=== PATIENT | male | born 1960 | race Caucasian/White ===

== ENCOUNTER → 2017-12-25 12:15 | Outpatient (CLI) | payer BC, SELFPAY ==
--- NOTE | 2017-12-25 12:22 | US_ITS ---
STUDY: SCROTUM ULTRASOUND REASON FOR EXAM: Male, 57 years old. Right-sided testicular pain. TECHNIQUE: Ultrasound evaluation of the scrotum was performed with color Doppler and static aragon-scale imaging. COMPARISON: None. FINDINGS: RIGHT TESTICLE INTRATESTICULAR: There is a normal size of the right testicle. The right testicle measures 5.1 x 3.3 x 2.5 cm. There is a homogenous echotexture. There is normal arterial and normal venous vascularity. There is no demonstrated right testicular mass or cyst. EXTRATESTICULAR: The epididymis is normal in size. The epididymis head measures 1.2 cm. There is normal vascularity of the epididymis. There is no demonstrated epididymal cystic structure. There is a small hydrocele. There is no demonstrated varicocele. There is no demonstrated extratesticular mass or cyst. LEFT TESTICLE INTRATESTICULAR: There is a normal size of the left testicle. The left testicle measures 4.6 x 2.9 x 2.3 cm. There is a homogenous echotexture. There is normal arterial and normal venous vascularity. There is no demonstrated left testicular mass or cyst. EXTRATESTICULAR: The epididymis is normal in size. The epididymis head measures 1.4 cm. There is normal vascularity of the epididymis. There is no demonstrated epididymal cystic structure. There is a small hydrocele. There is no demonstrated varicocele. There is no demonstrated extratesticular mass or cyst. US/Testicular with Arterial Flow IMPRESSION: There is no evidence of testicular torsion at the time this examination was performed. Small bilateral hydroceles. Electronically Signed: Win Head MD at 22:49 EDT Tel , Service support ,
== END ==
PROVIDERS: Family Provider Family Medicine; PCP Family Medicine; Visit Provider Family Medicine
DX: N50.819 Testicular pain, unspecified (principal)
CPT/HCPCS: 76870; 93976

== ENCOUNTER 2018-05-25 05:22 | Day surgery (SDC) | payer BC, SELFPAY ==
[2018-05-25] VITALS (9 sets, daily range): BP systolic 97–139; BP diastolic 82–94; PULSE 62–71; RESP 14–16; TEMP 36.1–36.8; O2SAT 69–100; BMI 29.9
--- NOTE | 2018-05-25 06:13 | PCM.HP.STD ---
Problem List (1) Screening for intestinal cancer Status: Acute History of Present Illness Date of Admission: 05/25/18 The patient is a 57 year old M who presents today for screening for intestinal cancer. He has never previously had a colonoscopy. He denies bright red blood per rectum or melena. I saw him January 30, 2018. He had an umbilical hernia at that time as well. He had initiated a weight loss program. He weighed as high as 280 pounds. When I saw him he weighed 272 pounds. He is still intentionally losing weight and would like to delay on the umbilical hernia repair. His mother had breast cancer and ovarian cancer. He does not know of any direct family members with colon cancer. He otherwise enjoys good health. Past Medical History Medical History: Medical History (Last Reviewed 01/30/18 @ 09:29 by Mel Lopez) Umbilical hernia without obstruction or gangrene (Acute) K42.9 Hemorrhoids K64.9 Stomach ulcer K25.9 Umbilical hernia K42.9 Allergies No Known Allergies Allergy (Unverified 01/30/18 09:32) Home Medications: Ambulatory Orders Medication Instructions Recorded Ibuprofen [Advil] 200 mg PO Q4H PRN PRN 05/18/18 Sildenafil Citrate [Sildenafil] 20 mg PO DAILY PRN 05/18/18 Surgical History: Surgical History (Last Updated 01/30/18 @ 09:29 by Mel Lopez) history kidney stone surgery Smoking Status: Never smoker Tobacco Use: Non-smoker Review of Systems Constitutional: Denies: Anorexia HEENT: Denies: Difficulty Swallowing Cardiovascular: Denies: Chest Pain, Chest Pressure Respiratory: Denies: Cough Gastrointestinal: Denies: Abdominal Pain, Hematochezia, Melena Neurological: Denies: Balance problems Psychiatric: Denies: Anxiety Endocrine: Reports: Change in Body Habitus - Intentional weight loss VTE Information - Inpt Only VTE Present on Admission: No Patient Problems: Active and Suspected Problems (Last Reviewed 01/30/18 @ 09:29 by Mel Lopez) Screening for intestinal cancer (Acute) - Physical Exam General: Alert, Oriented x3, Cooperative, No apparent distress HEENT: Atraumatic Oral: Moist Mucosa Neck: Supple, No JVD Lungs: Clear to auscultation Cardiovascular: Regular rate, Regular Rhythm Abdomen: Bowel Sounds Present, Soft, Non Tender Extremities: No clubbing Neurological: Cranial nerves II-XII grossly intact Psych/Mental Status: Normal Affect Vital Signs Temp Pulse Resp BP Pulse Ox 97.4 F L 71 16 112/84 H 96 05/25/18 05:57 05/25/18 05:57 05/25/18 05:57 05/25/18 05:57 05/25/18 05:57 Oxygen Delivery Method Room Air Weight: 252 lb 10.396 oz Body Mass Index (BMI) 29.9 Assessment/Plan All Active Problems (Last Reviewed 01/30/18 @ 09:29 by Mel Lopez) Screening for intestinal cancer (Acute) Umbilical hernia without obstruction or gangrene (Acute) I am recommending the patient a screening colonoscopy. He is aware of the technique, benefits, risks, alternatives. He has had an opportunity to ask and have questions answered. The patient does not yet want to proceed with umbilical herniorrhaphy. He is very much enjoying his [employer] program. He wants to continue to lose weight and to continue to stay fit. He does not want to have to interrupt his exercise protocol for the umbilical hernia repair at this time. He is still able to nicely reduce the hernia. He will notify me when he wants to proceed. Lazaro Arshad M.D., F.A.C.S.
--- NOTE | 2018-05-25 06:30 | COLBX_PTH ---
PATIENT: NIKKI DONALD LOC: EN U#:[id number] AGE/SX: 57/M ROOM: RE05/25/[address]: Dr. Lazaro Arshad MD : 1960 BED: DIS: 05/25/2018 SPEC #: [id number] RECD: 05/25/18 10:51 STATUS: JANELLE RAYMON #: [id number] SELVIN: 05/25/18 06:[address]: Lazaro Arshad DEPT: SURGICAL PATHOLOGY RECD BY: Otilio Babb ENTERED: 05/25/18 12:52 SP TYPE: COLON BX OTHR DR: Dr. Matthew Willis MD Tissues: Descending colon Procedures: Surgery Specimen Level IV HEADER OPERATION: Colonoscopy PRE-OP DIAGNOSIS: Screening TISSUE SUBMITTED: Descending polyp MICROSCOPIC DIAGNOSIS Descending colon polyp, biopsy: Fragments of tubular adenoma. AM:narinder 05/26/18 MICROSCOPIC DESCRIPTION Slides are reviewed. GROSS DESCRIPTION Received in fixative is one container labeled with the patient's name and designated descending polyp. The specimen consists of a duncan-pink polyp measuring 1 x 0.5 x 0.3 cm. Also present in the container are multiple fragments of fecal material measuring in aggregate 0.5 x 0.2 x 0.1 cm. The specimen is totally submitted in one cassette. / SJ:narinder 05/25/18 TC:5 CPT: 13296
--- NOTE | 2018-05-25 06:58 | OP.ENDO_ITS ---
Patient Name: Heriberto Enciso Procedure Date: 05/25/2018 6:06 AM Date of : 1960 Age: 57 Procedure: Colonoscopy Indications: Screening for colorectal malignant neoplasm Providers: Lazaro Arshad MD Referring MD: Lazaro Arshad MD Medicines: Midazolam 5 mg IV, Meperidine 150 mg IV Patient Profile: Last Colonoscopy: none. The patient's first colonoscopy is today. Complications: No immediate complications. Procedure: Pre-Anesthesia Assessment: - Prior to the procedure, a History and Physical was performed, and patient medications and allergies were reviewed. The patient's tolerance of previous anesthesia was also reviewed. The risks and benefits of the procedure and the sedation options and risks were discussed with the patient. All questions were answered, and informed consent was obtained. Prior Anticoagulants: The patient has taken no previous anticoagulant or antiplatelet agents. ASA Grade Assessment: II - A patient with mild systemic disease. After reviewing the risks and benefits, the patient was deemed in satisfactory condition to undergo the procedure. After I obtained informed consent, the scope was passed under direct vision. Throughout the procedure, the patient's blood pressure, pulse, and oxygen saturations were monitored continuously. The Colonoscope was introduced through the anus and advanced to the cecum, identified by appendiceal orifice and ileocecal valve. The colonoscopy was performed without difficulty. The patient tolerated the procedure well. The quality of the bowel preparation was good. The ileocecal valve was photographed. Moderate Sedation: Moderate (conscious) sedation was personally administered by the endoscopist. The following parameters were monitored: oxygen saturation, heart rate, blood pressure, and response to care. Total physician intraservice time was 15 minutes. Scope In: 6:32:28 AM Scope Withdrawal Time 0 hours 18 minutes 4 seconds Scope Out: 6:53:19 AM Total Procedure Duration Time 0 hours 20 minutes 51 seconds Findings: The perianal and digital rectal examinations were normal. Multiple diverticula were found in the sigmoid colon and descending colon. A 10 mm polyp was found in the descending colon. The polyp was pedunculated. The polyp was removed with a hot snare. Resection and retrieval were complete. Impression: - Diverticulosis in the sigmoid colon and in the descending colon. - One 10 mm polyp in the descending colon, removed with a hot snare. Resected and retrieved. Recommendation: - Telephone my office for pathology results in 1 week. - Resume previous diet. - Continue present medications. - Repeat colonoscopy in 3 years for surveillance based on pathology results. Procedure Code(s): --- Professional --- 83218, Colonoscopy, flexible; with removal of tumor(s), polyp(s), or other lesion(s) by snare technique 97169, 59, Moderate sedation services provided by the same physician or other qualified health resident care provider performing the diagnostic or therapeutic service that the sedation supports, requiring the presence of an independent trained observer to assist in the monitoring of the patient's level of consciousness and physiological status; initial 15 minutes of intraservice time, patient age 5 years or older Diagnosis Code(s): --- Professional --- Z12.11, Encounter for screening for malignant neoplasm of colon D12.4, Benign neoplasm of descending colon K57.30, Diverticulosis of large intestine without perforation or abscess without bleeding CPT copyright 2017 [employer]. All rights reserved. The codes documented in this report are preliminary and upon hims coder review may be revised to meet current compliance requirements. Lazaro Arshad MD 05/25/2018 6:58:15 AM This report has been signed electronically. Number of Addenda: 0 Note Initiated On: 05/25/2018 6:06 AM
== END 2018-05-25 08:11 | disposition home or self-care (01) ==
LOC: EN 05:22 → AC 05:25
PROVIDERS: Family Provider Family Medicine; PCP Family Medicine; Referring Provider Surgery; Visit Provider Surgery
PROC: 0DJD8ZZ Inspection of Lower Intestinal Tract, Via Natural or Artificial Opening Endoscopic (ICD-10-PCS; CPT 45378; principal; 2018-05-25 06:25)
DX: Z12.11 Encounter for screening for malignant neoplasm of colon (principal); D12.4 Benign neoplasm of descending colon; K42.9 Umbilical hernia without obstruction or gangrene; K57.30 Diverticulosis of large intestine without perforation or abscess without bleeding
CPT/HCPCS: 45380; 88305; 99152; 99153; J7120

== ENCOUNTER → 2020-02-03 | Outpatient (CLI) | payer BC, SELFPAY ==
[2018-05-25 05:57] VITALS: BMI 29.9
[2020-02-03 10:14] LABS: BUN 20 mg/dL (7-18); Creatinine, Serum 1.26 mg/dL (0.70-1.30); Glucose 132 mg/dL (74-106)
[2020-02-03 10:15] LABS: Anion Gap 7 (5-15); BUN/Creat Ratio 15.9 RATIO (10-20); Calcium,Total 8.6 mg/dL (8.5-10.1); Chloride 107 mmol/L (98-107); Cholesterol 216 mg/dL (200); EST Glomerular Filtration Rate 63 mL/min (>60); Est Glom Filt Rate - Afr Amer 76 mL/min (>60); High Density Lipoprotein 34 mg/dL; PSA,Total - Annual Screen 0.65 ng/mL (0.00-4.00); Potassium 3.8 mmol/L (3.5-5.1); Sodium Level 141 mmol/L (136-145); Triglycerides 146 mg/dL; Very Low Density Lipoprotein 29 mg/dL (5-40)
== END | disposition home or self-care (01) ==
LOC: MTLAB 07:53
PROVIDERS: PCP Family Medicine; Referring Provider Family Medicine; Visit Provider Family Medicine
DX: R73.01 Impaired fasting glucose (principal); Z13.220 Encounter for screening for lipoid disorders; Z12.5 Encounter for screening for malignant neoplasm of prostate
CPT/HCPCS: 36415; 80048; 80061; 84153; G0103

== ENCOUNTER 2020-09-06 08:59 | Day surgery (SDC) | payer BC, SELFPAY ==
[2020-08-09 15:07] VITALS: BMI 33.8
--- NOTE | 2020-09-01 08:36 | EKG12_ITS ---
Test Reason : PREOP Blood Pressure : / mmHG Vent. Rate : 069 BPM Atrial Rate : 069 BPM P-R Int : 184 ms QRS Dur : 098 ms QT Int : 396 ms P-R-T Axes : 069 041 055 degrees QTc Int : 424 ms Normal sinus rhythm Normal ECG Confirmed by GEORGIANA BUTLER, ABDELRAHMAN ([id number]), content editor KHOA FREY ([id number]) on 09/04/2020 10:22:42 AM Referred By: ENOCH GILES Confirmed By:ABDELRAHMAN STONER MD
[2020-09-01 08:41] LABS: Hematocrit 44.2 % (40-54); Mean Corp Hgb Conc 33.9 g/dL (32-36); Mean Corpuscular Hgb 30.1 pg (27.0-32.0); Mean Corpuscular Volume 88.8 fL (80-94); Mean Platelet Vol. 9.2 fl (6.2-12.0); Platelet Count 208 K/mm3 (150-450); RBC Distribution Width CV 11.9 % (11.6-14.6); RBC Distribution Width SD 38.5 fl (35.1-43.9); Red Blood Count 4.98 M/mm3 (4.6-6.2); White Blood Count 5.1 K/mm3 (4.4-11.0)
[2020-09-01 09:14] LABS: Anion Gap 6 (5-15); BUN 20 mg/dL (7-18); BUN/Creat Ratio 18.2 RATIO (10-20); Calcium,Total 8.8 mg/dL (8.5-10.1); Chloride 106 mmol/L (98-107); EST Glomerular Filtration Rate 73 mL/min (>60); Est Glom Filt Rate - Afr Amer 89 mL/min (>60); Glucose 125 mg/dL (74-106); Potassium 4.1 mmol/L (3.5-5.1); Sodium Level 141 mmol/L (136-145)
--- NOTE | 2020-09-06 | HERN_PTH ---
PATIENT: NIKKI DONALD LOC: [facility] U#:[id number] AGE/SX: 59/M ROOM: RE09/06/[address]: Dr. Lazaro Arshad MD : 1960 BED: DIS: 09/06/2020 SPEC #: [id number] RECD: 09/06/20 12:16 STATUS: JANELLE REQ #: [id number] SELVIN: 09/06/20 00:[address]: Lazaro Arshad DEPT: SURGICAL PATHOLOGY RECD BY: Esteban Parekh ENTERED: 09/06/20 12:17 SP TYPE: Hernia OTHR DR: Dr. Matthew Willis MD Tissues: HERNIA Procedures: Surgery Specimen Level II HEADER OPERATION: Umbilical hernia repair with mesh PRE-OP DIAGNOSIS: Umbilical hernia TISSUE SUBMITTED: Umbilical hernia sac MICROSCOPIC DIAGNOSIS Umbilical hernia sac: Fibroadipose and fibroconnective tissue, consistent with hernia sac. SJ:narinder 09/07/2020 MICROSCOPIC DESCRIPTION Slides are reviewed. GROSS DESCRIPTION Received in fixative is one container labeled with the patient's name and designated umbilical hernia sac. The specimen consists of an irregular piece of soft tissue measuring 4 x 2.5 x 1.5 cm. No mass lesion is identified. Pmo Consultant sections are submitted in one cassette. / SJ:rg 09/06/20 TC:5 CPT: 99723
[2020-09-06 09:47] VITALS: BP 130/88; PULSE 74; RESP 16; TEMP 37.1; O2SAT 95; BMI 33.5
[2020-09-06] MEDS: Lactated Ringers 1,000 ML 100 ML IV (10:06)
--- NOTE | 2020-09-06 10:30 | HP.PCM_ITS ---
Problem List (1) Umbilical hernia without obstruction or gangrene Status: Acute History and Physical Date of Admission: 09/06/20 Intake Visit Reasons: UMBILICAL HERNIA Chief Complaint: umbilical hernia Chief Controller Center Required: No Is patient in pain?: No Allergies No Known Allergies Allergy (Verified 08/09/20 15:08) Medications Ibuprofen [Advil] 200 mg PO Q4H PRN PRN 05/18/18 [History Confirmed 08/09/20] PFSH Medical History Umbilical hernia without obstruction or gangrene (Acute) Hemorrhoids (Acute) Stomach ulcer (Acute) Umbilical hernia (Acute) Surgical History history kidney stone surgery (Acute) Family History Mother Breast cancer Colon cancer Brother Heart disease Social History (Updated 08/09/20 @ 15:[address] Lazaro Arshad MD) Smoking Status: Never smoker alcohol intake: current alcohol intake frequency: a few times a month substance use type: does not use HPI HPI HPI: NIKKI DONALD, is a 59 M who presents to the office today for Surgical consultation regarding an umbilical hernia. The patient is referred by his primary care physician Dr. Matthew Willis and a written copy of my surgical consult and recommendations will return to him. I have assisted the patient on May 25, 2018 with a colonoscopy. Diverticulosis and a descending colon tubular adenoma were treated. He did have his umbilical hernia at that time. He was hoping with a self Improvement project to be able to lose weight prior to repair. The patient presents today basically because a week ago he had very significant soreness of the umbilicus he tried to manually reduce the area it was tender it was tender for 2 to 3 days. At this moment is currently improved. He does have a known hernia. After our previous visit he did intentionally lose some weight but unfortunately has regained much of it. He has back on a diet and exercise regimen. His current weight is about 273 pounds.He has concerns however because of the acute episode of discomfort HPI HPI HPI: NIKKI DONALD, is a 59 M who presents to the office today for ROS General General: Yes weight change; no appetite, fatigue, colon cancer, breast cancer or weakness HEENT HEENT: No difficulty swallowing, eye injury, eye surgery, swollen glands or hoarseness Endo Endocrine: No thyroid disease, diabetes mellitus, thyroid cancer, Hair loss, heat intolerance or cold intolerance Skin Skin: No rash or changing moles Breast Breast: No left breast lump, right breast lump, nipple discharge, breast pain, abnormal mammogram, abnormal US or breast enlargement Musc Musculoskeletal: No back problems, arthritis, rheumatoid arthritis, gout or joint pain Cardio Cardiovascular: No murmur, pacemaker, heart disease, atrial fibrillation, high blood pressure, heart attack, heart stent, palpitations, shortness of breat with exertion or chest pain Psych Psychiatric: No depression, anxiety or hearing voices Resp Respiratory: No shortness of breath, No sleep apnea, No cough, No COPD, No asthma, No emphysema, No wheezing Gastro Gastrointestinal: No abdominal pain, No nausea or vomiting, No diarrhea, No constipation, No blood in stool, No acid reflux, Yes hemorrhoids, Yes ulcers, No gallbladder problem, No black,tarry stools Spenser Hematologic: No blood thinners, No blood disorders, No bleeding, No anemia, No blood clots Neuro Neurologic: No system reviewed and no additional complaints, except as docu, No as per HPI, No abnormal walking, No abnormal hearing, No abnormal movements, No abnormal speech, No behavioral changes, No burning sensations, No confusion, No seizure-like activity, No unsteadiness, No dizziness, No localized weakness, No frequent falls, No headache(s), No lack of coordination, No loss of vision, No memory loss, No numbness, No other visual disturbances, No radiating pain, No restless legs, No sensory deficit, No fainting, No tingling, No tremor(s), No weakness, No other Exam Const General: cooperative, healthy appearing, comfortable Nutritional Appearance: obese Orientation: alert, awake [facility] Head: normal to inspection Eyes General: appearance normal, both eyes and all related structures Chest Breast Palpation: No nipple discharge Resp Effort & Inspection: normal respiratory effort Auscultation: clear to auscultation bilaterally Cardio Rate: regular rate Rhythm: regular rhythm Heart Sounds: no murmurs GI Palpation: soft Other: Overweight, bulbous umbilical hernia, mostly reducible, fascial defect approximately 2 cm diameter, normal bowel sounds Musc Cervical Spine: normal cervical lordosis Skin General: no rashes or lesions noted Neuro General: alert Extrem General: no calf tenderness Psych Affect: normal affect Assessment & Plan Problems 1. Umbilical hernia without obstruction and without gangrene K42.9 Plan 59-year-old gentleman with known history of umbilical hernia with what sounds like an episode of brief incarceration a week ago. I have discussed with him recommendations for a open umbilical herniorrhaphy utilizing a Ventralex mesh. I would anticipate retrorectus positioning. I have described the technique, benefit, risk, alternatives. He had hoped to return to work within 2 to 3 days. I suggested to him that there is a significant risk of recurrence of at least 3 to 5%. His body weight of 273 pounds does increase the risk. We discussed techniques to try to moderate that. Because of his episode of discomfort I do believe that at this point it is reasonable to proceed with a repair. Certainly it would be more difficult to proceed in an emergency situation. He has had an opportunity to ask and have questions answered. He will schedule procedure at his discretion. I anticipate an open approach at the umbilicus with has noted placement of mesh in the retrorectus space with direct repair as an outpatient. I appreciate the ongoing opportunity of assisting with his surgical care Copy: Dr. Matthew Arshad M.D., F.A.C.S. Coding Level of Care Code Off vis,est,level 3 Diagnoses Umbilical hernia without obstruction and without gangrene K42.9 I have re-examined the patient. There are no clinical changes since date of exam. Procedure Criteria Procedure Type: Elective COVID Risk Discussion: The surgeon/proceduralist and patient have discussed in detail the risk of exposure to and/or potential harm posed by the COVID-19 virus with having a surgery/procedure at this time versus the risk of delaying the surgery/procedure. It is not possible to know either the risk of delaying the surgery or procedure or chance of getting an infection with perfect accuracy, but a joint decision was made between the patient and the surgeon/proceduralist to proceed at this time with the scheduled surgery/procedure as indicated on the consent form.
--- NOTE | 2020-09-06 10:32 | DCINST_ITS ---
Discharge Diet: Light diet - advance as tolerated - if you have questions about your diet instructions, please talk to you doctor. Discharge Activity: May Not Drive - for 1 week or while taking narcotic pain medicine. May shower in (days): 1 Lifting Restrictions: 10 pounds Call your doctor if your incision/area has: Continuous Slow Oozing, Sudden Increased Bleeding, Increased Pain/ Swelling, Increased Redness, Foul Smelling Discharge Call your doctor if you observe: Fever of 101 or Higher Suture Line Care: Avoid Pulling/Pushing, Avoid Pinching/Bending Additional Dressing/Incision Instructions:: Change or remove dressing in 4 days. Leave steri-strips in place for 1 week. Allergies/Adverse Reactions: Allergies No Known Allergies Allergy (Verified 08/30/20 08:57) Medications to take at Discharge Ibuprofen [Advil] 200 mg PO Q4H PRN PRN 05/18/18 Sildenafil Citrate [Sildenafil] 20 mg PO PRN PRN 08/30/20 Primary Care Physician: Arnie Willis MD [Primary Care Provider] - Test Results: Test results from this visit will be discussed in further detail at your follow- up appointment, if applicable. Please Follow Up With: Lazaro Arshad MD - [phone] When: Call to make an appointment to be seen in about 10 days.
[2020-09-06] MEDS: Bupivacaine Mpf 0.5% 30 ML VIAL (11:14)
--- NOTE | 2020-09-06 11:23 | PCM.OPRPT ---
Problem List (1) Umbilical hernia without obstruction or gangrene Status: Acute Report of Operation Date of Procedure: 09/06/20 Pre-Operative Diagnosis: Umbilical hernia Post-Operative Diagnosis: Symptomatic umbilical hernia Surgery/Procedure Performed:: Umbilical herniorrhaphy with Ventralex ST hernia patch. Reference [id number]. Lot [id number]. Expiry date 02/10/2022 Description of Surgical Findings:: Timeout informed consent was obtained. 59-year-old gentleman was taken to the operating place upon the table underwent general anesthesia. Ancef 2 g were given intravenously preoperatively. The abdomen sterilely prepped and draped. A curvilinear infraumbilical incision was created. Sharp and blunt dissection was used to dissect free the hernia sac. Then flush with the fascia was transected using electrocautery. Hemostasis was intact. No bowel involvement. The preperitoneal space was then developed sharply and bluntly. The peritoneum was approximated with a running 3-0 Vicryl. A [address] mesh was placed into the retrorectus space. Good positioning was achieved. The tails were secured with interrupted 0 Nurolon. The fascia was approximated transversely with the same. Excellent approximation and positioning was achieved. The skin was secured to the fascia with simple suture of 4-0 Monocryl. Skin edges approximated with interrupted 4 Monocryl subdermal stitches. The periincisional and fascia was anesthetized with 30 cc of 0.5% Marcaine. Dermabond Telfa OpSite bulky dry dressing applied. Sponge and instrument and needle counts were reported the surgeon to be correct. Specimen hernia sac/contents. Drains none. Blood loss minimal. The patient was taken to the recovery room in satisfactory edition without apparent complication Lazaro Arshad M.D., F.A.C.S. Type of Anesthesia:: General Anesthesiologist: Sd Burrell
[2020-09-06 11:34] VITALS: BP 130/88; BP 153/96; PULSE 74; RESP 18; TEMP 36.1; O2SAT 94
[2020-09-06 11:45] VITALS: BP 130/88; BP 141/93; PULSE 69; RESP 18; O2SAT 94
[2020-09-06 11:56] VITALS: BP 130/88; BP 150/83; PULSE 69; RESP 18; TEMP 35.9; O2SAT 96
[2020-09-06 13:25] VITALS: BP 130/88; BP 151/95; PULSE 69; RESP 18; TEMP 36.2; O2SAT 95
== END 2020-09-06 13:39 | disposition home or self-care (01) ==
LOC: SDC 09:00 → AC 09:01
PROVIDERS: PCP Family Medicine; Referring Provider Surgery; Visit Provider Surgery
PROC: (CPT 49585; principal; 2020-09-06 10:45)
DX: K42.9 Umbilical hernia without obstruction or gangrene (principal); E66.9 Obesity, unspecified; F17.200 Nicotine dependence, unspecified, uncomplicated; Z20.822 Contact with and (suspected) exposure to COVID-19
CPT/HCPCS: 00830; 49585; 36415; 80048; 85027; 87426; 88302; 93005; C9803; J7120; C1781; J2405

== ENCOUNTER → 2020-10-27 | Outpatient (CLI) | payer BC, SELFPAY | END | disposition home or self-care (01) | LOC: LABSPEC 11:35 | PROVIDERS: PCP Family Medicine; Referring Provider Family Medicine; Visit Provider Family Medicine | DX: Z03.818 Encounter for observation for suspected exposure to other biological agents ruled out (principal) | CPT/HCPCS: 87635; U0002 ==

== ENCOUNTER → 2020-12-06 16:51 | Outpatient (CLI) | payer BC, SELFPAY ==
--- NOTE | 2020-12-06 16:55 | RAD_ITS ---
STUDY: X-RAY CHEST REASON FOR EXAM: Male, 60 years old. CHEST PAIN TECHNIQUE: PA and lateral views of the chest. COMPARISON: None. FINDINGS: The lungs are clear and expanded. There is no demonstrated pleural abnormality. Normal size heart. Normal mediastinum and taryn. Normal visualized pulmonary arteries. Normal visualized aortic arch and descending thoracic aorta. Normal visualized thoracic spine. Normal visualized ribs, clavicles, and shoulders. There is no demonstrated abnormality of the visualized soft tissue structures of the upper abdomen. RAD/Chest PA and Lateral IMPRESSION: Normal x-ray examination of the chest. Electronically Signed: Otilio Rose MD at 18:06 EDT Tel , Service support ,
[2020-12-06 18:32] LABS: ALB/GLOB Ratio 1.3 RATIO (0.9-2.4); AST(SGOT) 27 U/L (15-37); Alanine Aminotransfer ALT/SGPT 64 U/L (16-61); Albumin, Serum 3.9 g/dL (3.2-5.0); Alkaline Phosphatase 38 U/L (45-117); Anion Gap 7 (5-15); BUN 17 mg/dL (7-18); BUN/Creat Ratio 15.3 RATIO (10-20); Calcium,Total 8.6 mg/dL (8.5-10.1); Chloride 106 mmol/L (98-107); Cholesterol 209 mg/dL (200); Creatinine, Serum 1.11 mg/dL (0.70-1.30); EST Glomerular Filtration Rate 72 mL/min (>60); Est Glom Filt Rate - Afr Amer 88 mL/min (>60); Globulin 3.1 g/dL (2.2-4.2); Glucose 107 mg/dL (74-106); High Density Lipoprotein 28 mg/dL; PSA,Total - Annual Screen 0.65 ng/mL (0.00-4.00); Potassium 3.6 mmol/L (3.5-5.1); Sodium Level 141 mmol/L (136-145); Triglycerides 396 mg/dL; Very Low Density Lipoprotein 79 mg/dL (5-40)
== END ==
PROVIDERS: PCP Family Medicine; Referring Provider Family Medicine; Visit Provider Family Medicine
DX: R07.9 Chest pain, unspecified (principal); R73.01 Impaired fasting glucose; Z12.5 Encounter for screening for malignant neoplasm of prostate
CPT/HCPCS: 36415; 71046; 80053; 80061; 84153; G0103

== ENCOUNTER 2020-12-07 06:42 | Observation (INO) | payer BC, SELFPAY ==
[2020-12-07] VITALS (28 sets, daily range): BP systolic 121–195; BP diastolic 72–116; PULSE 56–78; RESP 15–18; TEMP 36.7–36.9; O2SAT 94–100; BMI 33.5; BMI 32.9
--- NOTE | 2020-12-07 06:46 | RAD_ITS ---
STUDY: X-RAY CHEST REASON FOR EXAM: Male, 60 years old. chest pain TECHNIQUE: Single AP portable view of the chest. COMPARISON: None. FINDINGS: The lungs are clear and expanded. There is no demonstrated pleural abnormality. Normal size heart. Normal mediastinum and taryn. Normal visualized pulmonary arteries. Normal visualized aortic arch and descending thoracic aorta. Normal visualized thoracic spine. Normal visualized ribs, clavicles, and shoulders. There is no demonstrated abnormality of the visualized soft tissue structures of the upper abdomen. RAD/Chest 1 View (Portable) IMPRESSION: Normal x-ray examination of the chest. Electronically Signed: Tomas Yen MD at 7:50 EDT Tel , Service support ,
--- NOTE | 2020-12-07 06:46 | EKG12_ITS ---
Test Reason : CP Blood Pressure : / mmHG Vent. Rate : 073 BPM Atrial Rate : 073 BPM P-R Int : 188 ms QRS Dur : 110 ms QT Int : 404 ms P-R-T Axes : 058 021 063 degrees QTc Int : 445 ms Normal sinus rhythm Incomplete right bundle branch block Nonspecific T wave abnormality Abnormal ECG Confirmed by GEORGIANA BUTLER, ABDELRAHMAN ([id number]), international editorial producer KHOA FREY ([id number]) on 12/08/2020 12:58:19 PM Referred By: JUAREZ Confirmed By:ABDELRAHMAN STONER MD
--- NOTE | 2020-12-07 06:47 | ED.VIS.CHEST ---
HPI History of Present Illness Chief Complaint: Chest Pain Informant: patient Onset/Context/Timing Onset: Days Activity at onset: gradual Timing: Continuous Quality: Positive for Heaviness and Tightness Location: Substernal, Right Chest and Left Chest Current Severity: Moderate Maximum Severity: Moderate Worsened By: Exertion Relieved By: Rest Associated Symptoms: Positive for Diaphoresis and Dyspnea Narrative Narrative: Patient is a 60-year-old male on no daily medications who presents to the emergency department chest pain. Patient states for the past 10 days to 2 weeks, he has been having tightness in his left arm into his chest. He states over the past few days, anytime he exerts himself, he begins to have the tightness. He states that he also feels short of breath. He did see his primary care physician in the office 2 days ago. He was told that if the symptoms continue or worsen that he should come to the emergency department. He states that his pain just would not go away this morning. He has no history of cardiovascular disease. Recent Illness/Hospitalization: No CVD Risk Factors: Positive for Family History 1' </=55 PFSH PFSH Medical History Hemorrhoids Stomach ulcer Umbilical hernia without obstruction or gangrene Home Medications ibuprofen 200 mg PO Q4H PRN PRN 05/18/18 [History Last Taken Unknown] sildenafil (pulm.hypertension) 20 mg PO PRN PRN 08/30/20 [History Last Taken Unknown] Allergy/AdvReac Type Severity Reaction Status Date / Time No Known Allergies Allergy Verified 09/18/20 13:40 Family History Mother Breast cancer Colon cancer Brother Heart disease Surgical History history kidney stone surgery History of umbilical hernia repair (~08/2020) Social History Smoking Status: Light Smoker (<10/day) alcohol intake: current alcohol intake frequency: a few times a month substance use type: does not use ROS ROS ED Constitutional Constitutional ED: Denies chills or fever(s) Eyes Eyes: Denies blurry vision or change in vision ENT ENT ED: Denies ear pain or sore throat Cardiovascular Cardiovascular: Denies chest pain or palpitations Respiratory/Chest Respiratory/Chest: Denies cough, dyspnea or dyspnea on exertion Gastrointestinal Gastrointestinal: Denies abdominal pain, nausea or vomiting Genitourinary Genitourinary ED: Denies dysuria or urinary frequency Musculoskeletal Musculoskeletal: Denies arthralgias or myalgias Integumentary Denies rash Neurologic Neurologic: Denies headache(s) or paresthesias Psychiatric Psychiatric: Denies anxiety or depression Endocrine Endocrinology: Denies polydipsia or polyuria Allergic/Immunologic Allergic/Immunologic ED: Denies urticaria EXAM Physical Exam Const Vital Signs: 12/07/20 06:43 12/07/20 06:48 12/07/20 06:55 Temperature 98.4 F Temperature Source Oral Pulse Rate 77 66 Respiratory Rate 16 Respiratory Effort Short of Breath Blood Pressure 189/116 H 195/115 H Blood Pressure Mean 140 Pulse Ox 95 Oxygen Delivery Method Room Air Room Air 12/07/20 07:18 Temperature Temperature Source Pulse Rate 61 Respiratory Rate Respiratory Effort Blood Pressure 142/86 H Blood Pressure Mean Pulse Ox Oxygen Delivery Method Positive well nourished and well developed General Appearance ED: well developed HEENT Reports normocephalic, head/scalp atraumatic and moist mucous membranes Eyes PERRL and EOMs intact bilaterally Neck no lymphadenopathy and supple General: Negative for tenderness Chest Wall inspection of chest normal Resp normal respiratory effort and clear to auscultation bilaterally Cardio regular rate, regular rhythm and no murmurs GI normal to inspection, nondistended, normoactive bowel sounds Palpation: Negative for tender, guarding or rebound tenderness present Back/Spine no CVA tenderness Cervical Spine: Negative for cervical spine tenderness Thoracic Spine / Upper Back: Negative for thoracic spinal tenderness Extremity normal to inspection General Extremety ED: Negative for tenderness Neuro oriented x3 and CN's II-XII intact bilaterally Neuro Narrative: No focal deficits appreciated. Sensorium / Orientation: alert Psych mental status grossly normal Skin no rashes or lesions noted, no wounds and skin turgor normal Heart Score History: Highly Suspicious ECG: Nonspecific Repolarization Age: >45 - <65 years Risk Factors: 1 or 2 Risk Factors Troponin: </= Normal Limit Score: 5 MDM MDM MDM Narrative Medical decision making narrative: The patient is a 60-year-old male who presents to the emergency department with chest pain. On arrival, the patient is hypertensive. EKG was obtained. In comparison to an EKG from 3 months ago, he has new T wave inversions across precordium. Patient was given 1 nitro. This did significantly improve his pain. Chest x-ray was reviewed by both myself and the radiologist. There is no enlarged cardiac silhouette, pneumothorax, pneumonia, or effusion. With the patient's new EKG changes, exertional chest pain, now chest pain at rest, I do feel that he would benefit from admission. The patient was discussed with the hospitalist. Patient was also discussed with Dr. Waite for cardiology. Impression 1. Unstable angina 2. EKG changes Lab Data Attestation: I reviewed the patient's lab results. Labs: Laboratory Results - last 24 hr 12/07/20 12/07/20 12/07/20 06:45 06:45 06:45 WBC 5.8 RBC 4.95 Hgb 14.9 Hct 43.5 MCV 87.9 MCH 30.1 MCHC 34.3 RDW Std Deviation 39.0 RDW Coeff of Jose 12.2 Plt Count 215 MPV 8.9 Immature Gran % (Auto) 1.400 H Neut % (Auto) 58.1 Lymph % (Auto) 28.3 [place] % (Auto) 8.7 Eos % (Auto) 2.8 Baso % (Auto) 0.7 Absolute Neuts (auto) 3.4 Absolute Lymphs (auto) 1.63 Nucleated RBC % 0 Sodium 140 Potassium 4.4 Chloride 106 Carbon Dioxide 30.0 Anion Gap 4 L BUN 18 Creatinine 1.24 Estim Creat Clear Calc 81.83 Est GFR (MDRD) Af Amer 77 Est GFR (MDRD) Non-Af 64 BUN/Creatinine Ratio 14.5 Glucose 143 H Calcium 8.9 Troponin I High Sens 9.7 B-Natriuretic Peptide 3.2 EKG Initial EKG: Attestation: I personally reviewed and interpreted this EKG as follows: Interpretation: Sinus Rhythm and Non-Specific ST Changes Comments: New large T wave inversions in the precordial leads Prior EKG tracings: available for review Prior: Changed Discharge Plan Triage Chief Complaint: Chest Pain ED Provider: Fredi Ornelas Dx/Rx/DC Orders Prescriptions: No Action ibuprofen 200 MG tablet 200 mg PO Q4H PRN PRN (Reason: Pain 1-10 Or Fever) RF: 0 sildenafil (pulm.hypertension) 20 MG tablet 20 mg PO PRN PRN (Reason: enhancement) RF: 0 Primary Care Provider: Arnie Willis
[2020-12-07 06:53] LABS: Absolute Lymphocyte Count 1.63 X10^3/uL (0.83-4.51); Absolute Neutrophil Count 3.4 X10^3/uL (2.0-7.7); Basophil# 0.04 X10^3/uL; Basophil% 0.7 % (0-1); Eosinophil# 0.16 X10^3/uL; Eosinophils% 2.8 % (0-5); Hematocrit 43.5 % (40-54); Hemoglobin 14.9 g/dL (13.0-16.5); Lymphocyte # 1.63 X10^3/ul (0.83-4.51); Lymphocyte % 28.3 % (19-41); Mean Corp Hgb Conc 34.3 g/dL (32-36); Mean Corpuscular Hgb 30.1 pg (27.0-32.0); Mean Corpuscular Volume 87.9 fL (80-94); Mean Platelet Vol. 8.9 fl (6.2-12.0); Monocyte% 8.7 % (0-10); NRBC Flagged by Analyzer 0 % (0-5); Neutrophil # 3.35 X10^3/uL (2.7-7.7); Neutrophil % 58.1 % (47-70); Platelet Count 215 K/mm3 (150-450); RBC Distribution Width CV 12.2 % (11.6-14.6); Red Blood Count 4.95 M/mm3 (4.6-6.2); White Blood Count 5.8 K/mm3 (4.4-11.0)
[2020-12-07] MEDS: Aspirin 81 MG TAB.CHEW 324 MG PO (06:53)
[2020-12-07] MEDS: Nitroglycerin SL (ED/IMG/CATH) 0.4 MG TABLET SL ×2 (06:55→07:18)
[2020-12-07 07:11] LABS: Anion Gap 4 (5-15); BUN 18 mg/dL (7-18); BUN/Creat Ratio 14.5 RATIO (10-20); Calcium,Total 8.9 mg/dL (8.5-10.1); Chloride 106 mmol/L (98-107); Creatinine, Serum 1.24 mg/dL (0.70-1.30); EST Glomerular Filtration Rate 64 mL/min (>60); Est Glom Filt Rate - Afr Amer 77 mL/min (>60); Estimated Creatinine Clearance 81.83 ml/min; Glucose 143 mg/dL (74-106); Potassium 4.4 mmol/L (3.5-5.1); Sodium Level 140 mmol/L (136-145); Troponin-I HS 9.7 pg/mL (3.0-78.5)
[2020-12-07 07:28] LABS: BNP,B-Type NATRIURETIC PEPTIDE 3.2 pg/mL (0-100)
--- NOTE | 2020-12-07 07:44 | HP.PCM.HOS_ITS ---
HPI - General General Date of Admission: 12/07/20 HPI Narrative NIKKI DONALD, is a 60 M who presented to [facility] on 12/07[facility]2020 complaining of chest pain. Patient reports that he has been experiencing intermittent chest pain since approximately weekend. He recently started a walking program and had to discontinue this secondary to shortness of breath he was experiencing during his walks which was new. Recently he has been having daily chest pain that has been more noticeable with exertion, even minimal exertion, and seems to subside with rest. His most recent episode was this morning when he got up to go to the bathroom upon walking to the bathroom he got left-sided chest pain that radiated to his left shoulder he had some associated diaphoresis and shortness of breath. He denies any radiation of pain to his neck or jaw, nausea, or vomiting. He reports that his brothers both had coronary events in their 50s. He has no other significant risk factors that he does admit to cigar smoking occasionally. His vital signs in the emergency department were stable. He had ongoing chest pain which was treated with sublingual nitro x2 and had resolution of pain. His CBC is unremarkable. His BMP is unremarkable. His fasting glucose is mildly elevated at 143. His BNP was 3.2. His high-sensitivity troponin was 9.7 upon presentation. Chest x-ray was unremarkable. His EKG shows new deep T wave inversions in V1 V2 and V3. He will be admitted to PCU as an observation and upon request of the on-call barrel brander will have a stress test if his repeat troponin at 2 hours is negative and if it is positive he will go to the [facility]. [facility] Medical History Hemorrhoids Stomach ulcer Umbilical hernia without obstruction or gangrene Home Medications ibuprofen 200 mg PO Q4H PRN PRN 05/18/18 [History Last Taken Unknown] sildenafil (pulm.hypertension) 20 mg PO PRN PRN 08/30/20 [History Last Taken Unknown] Allergy/AdvReac Type Severity Reaction Status Date / Time No Known Allergies Allergy Verified 09/18/20 13:40 Family History Mother Breast cancer Colon cancer Brother Heart disease Surgical History history kidney stone surgery History of umbilical hernia repair (~08/2020) Social History Smoking Status: Light Smoker (<10/day) alcohol intake: current alcohol intake frequency: a few times a month substance use type: does not use ROS Review of Systems ROS Unobtainable: Denies due to encephalopathy, due to endotracheal tube, due to mental condition, due to mental status or other Constitutional Constitutional: Denies anorexia, change in weight, chills, fatigue, fever(s), malaise, night sweats or weakness ENT HEENT: Denies abnormal hearing, dysphagia, ear pain, epistaxis, headache(s), hearing loss, nasal congestion, nasal discharge, post nasal drip, sinus pressure, sore throat or other Cardiovascular Cardiovascular: Reports chest pain and dyspnea on exertion; Denies claudication, edema, lightheadedness, orthopnea, palpitations, paroxysmal nocturnal dyspnea, rapid heart rate or syncope Respiratory/Chest Respiratory/Chest: Reports dyspnea and shortness of breath with exertion; Denies cough, excessive phlegm production, hemoptysis, productive cough, shortness of breath at rest, wheezing or other Gastrointestinal Gastrointestinal: Denies abdominal pain, coffee ground emesis, constipation, diarrhea, dyspepsia, hematemesis, hematochezia, loose stools, melena, nausea or vomiting Genitourinary Genitourinary: Denies burning urination, difficulty urinating, dysuria, hematuria, nocturia, urinary frequency, urinary hesitancy, urinary incontinence, urinary urgency or other Musculoskeletal Musculoskeletal: Denies arthralgias, back pain, joint pain, joint stiffness, joint swelling, myalgias, neck pain or other Neurologic Neurologic: Denies abnormal gait, abnormal speech, confusion, disequilibrium, dizziness, focal weakness, headache(s), numbness, paresthesias, seizure-like activity, seizures, syncope, tingling, tremor(s) or other Psychiatric Psychiatric: Denies anxiety, depression, homicidal ideation, suicidal ideation or other Endocrine Endocrinology: Denies change in body appearance, cold intolerance, excessive sweating, heat intolerance, polydipsia, polyuria or other Hematologic/Lymphatic Hematologic/Lymphatic: Denies anemia, easy bleeding, easy bruising, lymphadenopathy or other Allergic/Immunologic Allergic/Immunologic: Denies rhinitis, hives, eczemia, asthma or other Vital Signs Vital Signs Vital Signs: 12/07/20 06:43 12/07/20 06:48 12/07/20 06:55 Temperature 98.4 F Temperature Source Oral Pulse Rate 77 66 Respiratory Rate 16 Respiratory Effort Short of Breath Blood Pressure 189/116 H 195/115 H Blood Pressure Mean 140 Pulse Ox 95 Oxygen Delivery Method Room Air Room Air 12/07/20 07:18 12/07/20 07:33 Temperature 98.4 F Temperature Source Oral Pulse Rate 61 63 Respiratory Rate 15 Respiratory Effort Blood Pressure 142/86 H 139/84 H Blood Pressure Mean 102 Pulse Ox 96 Oxygen Delivery Method Room Air Weight Weight: 128.2 kg Body Mass Index (BMI) 33.5 Physical Exam Const alert, oriented x3, no apparent distress, healthy appearing and well nourished Constitutional Narrative: Overweight, Well developed, white male, sitting up in bed, at bedside, pt feels comfortable General Appearance: cooperative HEENT normocephalic, head/scalp atraumatic, hearing grossly normal bilaterally, moist oral mucous membranes and oropharynx normal Mouth: oral and palatal mucosa normal and moist mucous membranes abnormal Eyes PERRL, EOMs intact bilaterally and conjunctivae normal Neck no lymphadenopathy, supple, no JVD and no carotid bruits Neck Narrative: trachea midline, thyroid not enlarged and without nodules Resp normal respiratory effort, no retractions, no use of accessory muscles and clear to auscultation bilaterally Auscultation: Negative for crackles, rales, rhonchi or wheezes Cardio regular rate, regular rhythm, S1 normal heart sound, S2 normal heart sound, no murmurs, no rub, no gallops, no clicks and no JVD GI normal to inspection, nondistended, normoactive bowel sounds, soft to palpation, non-tender and non-distended; Negative for hepatosplenomegaly Palpation: Negative for tender, guarding or hernia Extremity normal to inspection, full ROM and no clubbing, cyanosis or edema Peripheral Pulses: Yes pulses 2+ throughout Skin no rashes or lesions noted, no wounds, skin turgor normal, no jaundice, no petechiae and no mottling Neuro oriented x3, CN's II-XII intact bilaterally, moves all extremities and no focal motor deficits Sensorium / Orientation: awake, alert, oriented to person, oriented to place and oriented to time Speech: speech normal Motor Exam: strength 5/5 throughout Psych affect normal Results Lab / Micro Data Attestation: I reviewed the patient's lab results. Result Diagrams: 12/07/20 06:45 12/07/20 06:45 Labs: Laboratory Results - last 24 hr 12/07/20 12/07/20 12/07/20 06:45 06:45 06:45 WBC 5.8 RBC 4.95 Hgb 14.9 Hct 43.5 MCV 87.9 MCH 30.1 MCHC 34.3 RDW Std Deviation 39.0 RDW Coeff of Jose 12.2 Plt Count 215 MPV 8.9 Immature Gran % (Auto) 1.400 H Neut % (Auto) 58.1 Lymph % (Auto) 28.3 [place] % (Auto) 8.7 Eos % (Auto) 2.8 Baso % (Auto) 0.7 Absolute Neuts (auto) 3.4 Absolute Lymphs (auto) 1.63 Nucleated RBC % 0 Sodium 140 Potassium 4.4 Chloride 106 Carbon Dioxide 30.0 Anion Gap 4 L BUN 18 Creatinine 1.24 Estim Creat Clear Calc 81.83 Est GFR (MDRD) Af Amer 77 Est GFR (MDRD) Non-Af 64 BUN/Creatinine Ratio 14.5 Glucose 143 H Calcium 8.9 Troponin I High Sens 9.7 B-Natriuretic Peptide 3.2 Assessment & Plan Assessment/Plan (1) Unstable angina: (2) Hyperglycemia: PLAN: Unstable angina -Initial troponin is negative -Cycle cardiac enzymes -EKG changes with T wave inversions that are new in the anterior precordial lead s -Aspirin daily -High intensity statin -Check hemoglobin A1c -Check lipids -If repeat high-sensitivity troponin is negative will perform treadmill stress test if it is positive per discussion with cardiology they will take the patient to the [facility] -Cardiology consult Hyperglycemia -Fasting blood sugar was 143 on lab this morning -Check hemoglobin A1c History of GI bleed -Patient is on no medication for this at this time -Monitor hemoglobin with potential anticoagulation in antiplatelet use Pulmonary artery hypertension -Continue sildenafil DVT prophylaxis -Lovenox CODE STATUS -Full code Charges/Coding Visit Charges Inpatient E&M: 10984 Init Hosp L2
--- NOTE | 2020-12-07 07:51 | EKG12_ITS ---
Test Reason : Blood Pressure : / mmHG Vent. Rate : 060 BPM Atrial Rate : 060 BPM P-R Int : 188 ms QRS Dur : 102 ms QT Int : 412 ms P-R-T Axes : 050 035 061 degrees QTc Int : 412 ms Normal sinus rhythm Incomplete right bundle branch block Confirmed by HENRIQUE BUTLER, BELLA ([id number]), photography editor KHOA FREY ([id number]) on 12/08/2020 11:36:11 AM Referred By: JOAQUINA Confirmed By:BELLA DUENAS MD
--- NOTE | 2020-12-07 09:02 | CASEMGMT ---
According to the [place] website, the following are in-network tertiary facilities: [facility], [place], [facility], [facility], [facility], [facility], [facility], and . Christel PATE CM
[2020-12-07 09:15] LABS: Troponin-I HS 11.9 pg/mL (3.0-78.5)
[2020-12-07 09:16] LABS: Hemoglobin A1c 6.5 % (3.8-5.6)
--- NOTE | 2020-12-07 09:17 | PCM.CONS.C ---
Assessment & Plan Assessment/Plan (1) Unstable angina: PLAN: 60-year-old patient, presented to the ER this morning with worsening symptoms of chest pain with some radiation to the left arm Evidently the symptoms have been ongoing for more than a months, noted mainly on exertion and relieved to some extent with rest However for the last 2 days symptoms was more intense described as left upper chest pain with radiation to the left arm associated with shortness of breath This morning when he woke up to brush his teeth in the bathroom he felt that he had recurrence of his symptoms and came to the ER where he was evaluated by the ER physician and noted he had change in the EKG in comparison to prior with T wave inversion in V1?V3. 2 sets of cardiac biomarkers troponins have been negative. This patient has significant family history of CAD 2 brothers has coronary arthrosclerosis and recently, he was smoking cigars occasionally. Cardiac exam essentially normal Review of the electrocardiogram and in comparison to prior EKG showed T wave inversion in V1 to V3 Plan; 1. Patient was given nitroglycerin today which relieved his symptoms as well he was given aspirin. 2. I discussed cardiac evaluation I recommended to proceed with cardiac catheterization due to the significant history and the change in the electrocardiogram Approach will be from the right radial artery approach. 3. Noted also had elevated glucose, will defer to the medical team for management and recommendation. (2) Hyperglycemia: HPI Consult Data Date of Consult: 12/07/20 HPI Narrative Reason for Consultation: Patient with unstable angina HPI Narrative: NIKKI DONALD, is a 60 M who presents [facility] Medical History Hemorrhoids Stomach ulcer Umbilical hernia without obstruction or gangrene Home Medications sildenafil (pulm.hypertension) 20 mg PO PRN PRN 08/30/20 [History Last Taken Unknown] Allergy/AdvReac Type Severity Reaction Status Date / Time No Known Allergies Allergy Verified 09/18/20 13:40 Family History Mother Breast cancer Colon cancer Brother Heart disease Surgical History history kidney stone surgery History of umbilical hernia repair (~08/2020) Social History Smoking Status: Light Smoker (<10/day) alcohol intake: current alcohol intake frequency: a few times a month substance use type: does not use Physical Exam Narrative This patient seen and evaluated today at bedside with the nursing staff His symptoms of chest pain resolved His vital signs has been stable. at bedside at time of evaluation Patient is alert, orientated was able to give a detailed history about his medical problems. court recording monitor showed normal sinus Cardiovascular examination S1-S2 normal, no murmur no systolic or diastolic murmur, no pericardial rub or gallop Chest examination; Bilateral air entry with no evidence of wheeze or crackles Examination of the abdomen is soft no palpable mass Examination lower extremity no clubbing no cyanosis no lower extremity edema. Central nervous system exam; No focal neurological deficit. Objective Data Vital Signs: Vital Signs Temp Pulse Resp BP Pulse Ox 98.1 F 62 18 136/72 H 99 12/07/20 08:00 12/07/20 08:00 12/07/20 08:00 12/07/20 08:00 12/07/20 08:00 Oxygen Delivery Method Room Air Weight: 277 lb 12.519 oz Body Mass Index (BMI) 32.9 Lab / Micro Data Result Diagrams: 12/07/20 06:45 12/07/20 06:45 Labs: Laboratory Results - last 24 hr 12/07/20 12/07/20 12/07/20 06:45 06:45 06:45 WBC 5.8 RBC 4.95 Hgb 14.9 Hct 43.5 MCV 87.9 MCH 30.1 MCHC 34.3 RDW Std Deviation 39.0 RDW Coeff of Jose 12.2 Plt Count 215 MPV 8.9 Immature Gran % (Auto) 1.400 H Neut % (Auto) 58.1 Lymph % (Auto) 28.3 [place] % (Auto) 8.7 Eos % (Auto) 2.8 Baso % (Auto) 0.7 Absolute Neuts (auto) 3.4 Absolute Lymphs (auto) 1.63 Nucleated RBC % 0 Sodium 140 Potassium 4.4 Chloride 106 Carbon Dioxide 30.0 Anion Gap 4 L BUN 18 Creatinine 1.24 Estim Creat Clear Calc 81.83 Est GFR (MDRD) Af Amer 77 Est GFR (MDRD) Non-Af 64 BUN/Creatinine Ratio 14.5 Glucose 143 H Hemoglobin A1c Calcium 8.9 Troponin I High Sens 9.7 B-Natriuretic Peptide 3.2 12/07/20 12/07/20 08:50 08:50 WBC RBC Hgb Hct MCV MCH MCHC RDW Std Deviation RDW Coeff of Jose Plt Count MPV Immature Gran % (Auto) Neut % (Auto) Lymph % (Auto) [place] % (Auto) Eos % (Auto) Baso % (Auto) Absolute Neuts (auto) Absolute Lymphs (auto) Nucleated RBC % Sodium Potassium Chloride Carbon Dioxide Anion Gap BUN Creatinine Estim Creat Clear Calc Est GFR (MDRD) Af Amer Est GFR (MDRD) Non-Af BUN/Creatinine Ratio Glucose Hemoglobin A1c 6.5 H Calcium Troponin I High Sens 11.9 B-Natriuretic Peptide Cardiology Labs/Tests 12/07/20 06:45: WBC 5.8, RBC 4.95, Hgb 14.9, Hct 43.5, MCV 87.9, MCH 30.1, MCHC 34.3, Plt Count 215, MPV 8.9, Immature Gran % (Auto) 1.400 H, Neut % (Auto) 58.1, Lymph % (Auto) 28.3, [place] % (Auto) 8.7, Eos % (Auto) 2.8, Baso % (Auto) 0.7, Absolute Neuts (auto) 3.4, Nucleated RBC % 0 12/07/20 06:45: Sodium 140, Potassium 4.4, Chloride 106, Carbon Dioxide 30.0, Anion Gap 4 L, BUN 18, Creatinine 1.24, Est GFR (MDRD) Af Amer 77, Est GFR (MDRD) Non-Af 64, BUN/Creatinine Ratio 14.5, Glucose 143 H, Calcium 8.9 12/07/20 06:45: B-Natriuretic Peptide 3.2 12/07/20 08:50: Hemoglobin A1c 6.5 H Rhythm: Normal sinus rhythm EKG: T wave inversion in the anterior leads V1?V3, suggestive of myocardial ischemia. Radiography Diagnostic Testing: Radiology Impression Chest X-Ray 12/07/20 06:46 IMPRESSION: Normal x-ray examination of the chest. Electronically Signed: Tomas Yne MD at 7:50 EDT Tel , Service support ,
--- NOTE | 2020-12-07 11:30 | EKG12_ITS ---
Test Reason : Blood Pressure : / mmHG Vent. Rate : 065 BPM Atrial Rate : 065 BPM P-R Int : 184 ms QRS Dur : 106 ms QT Int : 422 ms P-R-T Axes : 067 057 067 degrees QTc Int : 438 ms Normal sinus rhythm Incomplete right bundle branch block Confirmed by HENRIQUE BUTLER, BELLA ([id number]), commercial production editor KHOA FREY ([id number]) on 12/08/2020 11:35:35 AM Referred By: KANNAN Confirmed By:BELLA DUENAS MD
--- NOTE | 2020-12-07 12:21 | PCI.CARDCATH ---
PCI Cardiac Cath Report PCI Report: Procedure performed; 1. Left heart catheterization Selective left and right cholangiography, measurement of LVEDP and LV ventriculogram. 2. Successful percutaneous coronary intervention/PCI of proximal LAD with predilatation and placement of drug-eluting stent/Orsiro 3 x 15 mm Postdilated with 3.5 x 15 mm NC balloon. Reduction of stenosis from 90% to 0% and maintenance of MICHAEL-3 flow. 3. Moderate sedation 4. Placement of TR band to close the right radial artery arteriotomy site. Preprocedure diagnosis; 60-year-old patient presented to the ED/[facility] with progressive symptoms of chest pain typical of angina retrosternal chest discomfort with radiation to the left arm Has been at least for like couple of weeks but progressively get worse on the last 2 days. Noted he had change in the EKG in the anterior lead V1?V3 T wave inversion, which is significantly different from prior EKG Also noted his symptoms relieved with nitroglycerin which is typical of angina and he has elevated blood glucose. As well patient has significant family history of CAD 2 brothers had history of coronary artery atherosclerosis. Patient recently smoking cigars occasionally. And also he was not in any medication. Consent; Risk and benefit of the procedure explained detail to the patient informed consent obtained Moderate sedation; Patient was given intravenous Versed 1 mg and intravenous fentanyl 50 mcg Diagnostic and interventional equipment; 1. 6 [place] sheath to the right radial artery 2. Diagnostic catheters used 5 [place] JL 3.5, 5 [place] JR4, 5 [place] pigtail catheter 3. Interventional equipment, 6 [place] 3.5 EBU guide, 0.014 Hi-Torque whisper MS straight 190 cm, 0.014 run-through extra floppy 180 cm straight wire Emergent MR 2 x 12 mm balloon Drug-eluting stent/Orsiro 3 x 15 mm, NC Emerge 3.5 x 15 mm. Procedure in detail; Patient brought to the Repair Specialist in fasting state, right radial artery area prepped and draped in the usual sterile fashion, we proceeded with placement of 6 [place] sheath in the right radial artery A cocktail of verapamil, heparin as well as nitroglycerin was given through the sheath Patient also was given heparin 7000, ACT was around 241 he was given additional 3000 of heparin and was given Brilinta 180 mg aspirin was given in the ED department Patient was given as well Integrilin 2 bolus and infusion of Integrilin, his renal function is normal We will proceed with the diagnostic catheter 5 [place] JL 3.5 advanced ascending aorta cannulated the left main without difficulty multiple views of the left colostomy obtained, following this catheter exchanged for 5 [place] JR4 catheter and cannulated the right coronary ostium and multiple views of the record system obtained including GIL, MORENO cranial and caudal views Following this 5 [place] pigtail catheter was placed in the mid left ventricle cavity and element gram obtained a 30 degree MORENO projection, LVEDP was measured and a pullback pressure was measured as well Angiographic view was reviewed he had a high-grade lesion involving the proximal LAD of at least around 90% We will proceed with the whisper wire across the lesion and then we predilated the lesion with 2 x 12 mm balloon followed by placement of drug-eluting stent 3 x 15 mm/Isreal, followed by postdilatation using 3.5 x 15 mm NC Emerge balloon and achievement of excellent result with reduction of stenosis from 90% to 0% and maintenance of MICHAEL-3 flow Findings; Hemodynamic; LV systolic function preserved ejection fraction of around 55-60% There is no systolic gradient across aortic valve, there is no mitral regurgitation LVEDP measured within normal Current angiography; 1. Left main coronary artery normal angiographically bifurcating into LAD and the left circumflex 2. Left anterior descending artery large vessel 90% stenosis proximal, mid LAD had nonobstructive atherosclerosis of around 30%/at site of second diagonal branch. First diagonal branch, D1 had no significant atherosclerosis, second diagonal branch D2 had ostial lesion of 70%, a small to moderate size vessel 3. Left circumflex a large vessel proximal circumflex had no significant atherosclerosis, OM1 had nonobstructive sclerosis OM 2 ostial had 60-70% stenosis large vessel 4. RCA large dominant, proximal RCA had nonobstructive sclerosis of around 20% Conclusion; This patient had unstable angina, with high-grade stenosis of the proximal LAD underwent successful PCI as described Plan and recommendation 1. Patient to continue on dual antiplatelet therapy Brilinta and aspirin for 1 year 2. [facility] and findings discussed with Patient will continue on medical treatment/GDMT with low-dose beta-arlette, long-acting nitrate, dual antiplatelet therapy with Brilinta and aspirin, high-dose statin and 80 mg atorvastatin 3. Recommendation; Evaluate as an outpatient/elective IFR measurement of the OM 2 and to consider PCI. Sanya Waite MD,FACC,[facility]
[2020-12-07] MEDS: 0.9% Normal Saline 1,000 ML 150 ML IV (12:26)
[2020-12-07 12:36] LABS: Hematocrit 42.5 % (40-54); Hemoglobin 14.8 g/dL (13.0-16.5); Mean Corp Hgb Conc 34.8 g/dL (32-36); Mean Corpuscular Volume 86.2 fL (80-94); Platelet Count 224 K/mm3 (150-450); RBC Distribution Width CV 12.3 % (11.6-14.6); RBC Distribution Width SD 38.8 fl (35.1-43.9); Red Blood Count 4.93 M/mm3 (4.6-6.2); White Blood Count 6.5 K/mm3 (4.4-11.0)
[2020-12-07 12:58] LABS: Troponin-I HS 29.2 pg/mL (3.0-78.5)
--- NOTE | 2020-12-07 13:10 | CHAPLAIN ---
Type of Pastoral Visit _x__ Initial Visit ___ Follow-up Visit ___ On-call Visit ___ General Patient Visit ___ Spiritual Assessment ___ Family Conference ___ Bereavement ___ Rapid Response ___ Code Blue ___ Other (describe below) Pastoral Care Referral From _x__ Patient ___ Family ___ Nurse ___ Physician ___ Adobe Ball Mixer ___ Process Equipment Operator ___ Other (describe below) Sacrament/Intervention _x__ Active listening ___ Anointing ___ Mosque ___ Bereavement ___ Communion ___ Naomi exploration ___ _x__ Life review _x__ Prayer ___ Reconciliation ___ Sacrament of Sick _x__ Supportive presence ___ Wedding ___ Other (describe below) Pastoral Comments spouse also in room with patient
--- NOTE | 2020-12-07 14:12 | CRPHASE1_ITS ---
Patient Communication PHII Cardiac Rehab Discussed with Patient:: Yes Guide to Cardiac Rehab Given to Patient:: Yes Cardiac Rehab Facility Choice List Given to Patient:: Yes Choice Program [facility] PHII:: Communication Given to CR Calculating Machine Operator:: Sanya Waite Phase II Cardiac Rehab:: Yes Sessions:: 36 sessions - 3 days/wk, 12 weeks Cardiac Rehabilitation Info Cardiac Rehabilitation Program Information: Cardiac Rehabilitation is important for patients like you who are recovering from a heart problem. Cardiac rehabilitation programs are recognized as integral to the continued care of the patient with coronary heart disease. The cardiac rehabilitation program is designed to optimize a patient's physical, psychological, and social functioning. Health home care administrator work in cardiac rehabilitation programs and assist you with getting the treatments you need to get stronger and healthier - like exercise, healthy eating habits, and medications. Cardiac rehabilitation has been show to help people with heart problems live longer and have better life enjoyment than people who do not go to cardiac rehabilitation. Please contact the Cardiac Rehabilitation Program at [facility] at in two weeks if you have not heard from them.
--- NOTE | 2020-12-07 14:13 | CRPH1.INSTRU ---
General Education CAD and cardiac anatomy and function:: Patient communicates acknowledgment, Family communicates acknowledgment Explanation of diagnoses and procedures:: Patient communicates acknowledgment, Family communicates acknowledgment Sign/Symptoms of NH:: Patient communicates acknowledgment, Family communicates acknowledgment Antiplatelet therapy: Patient communicates acknowledgment, Family communicates acknowledgment Proper use of NTG-SL: Patient communicates acknowledgment, Family communicates acknowledgment Emergency procedures and activation of EMS: Patient communicates acknowledgment, Family communicates acknowledgment Compliance of all prescribed medications: Patient communicates acknowledgment, Family communicates acknowledgment Smoking Patient Nicotine/Smoking Risk Factors Are:: Cigars Recommendations Include:: Smoking cessation strategies/Smoking packet, Participation in a smoking cessation program Nicotine/Smoking Response Code:: Patient communicates acknowledgment, Family communicates acknowledgment Dyslipidemia Patient Dyslipidemia Risk Factors Are:: Total Cholesterol, Triglycerides, HDL, LDL Recommendations Include:: Lipid profile not available, Reviewed NCEP/ATP guidelines, Therapeutic Lifestyle Change dietary guidelines Dyslipidemia Response Code:: Patient communicates acknowledgment, Family communicates acknowledgment Overweight/Obesity Patient Overweight/Obesity Risk Factors Are:: Obesity - > or = 30 Recommendations Include:: Weight loss of 5-10%, Reduced calorie diet, Exercise 5-7 times/week Overweight/Obesity:: Patient communicates acknowledgment, Family communicates acknowledgment Hypertension Recommendations Include:: Maintain BP <130/85, DASH dietary guidelines, Decrease/maintain normal body weight, Moderation of ETOH Hypertension:: Patient communicates acknowledgment, Family communicates acknowledgment Heart Disease Patient Heart Disease Risk Factors Are:: Family history of heart disease < 65 years old Recommendations Include:: Educated family members of their risk, Educated family members of importance of prevention of heart disease Heart Disease Response Code:: Patient communicates acknowledgment, Family communicates acknowledgment Diabetes Patient Diabetes Risk Factors Are:: No documented hx of diabetes Recommendations Include:: Maintain fasting blood sugars 70-110 md/dL, Maintain HgbA1c of 6% or less, Monitor blood sugar as prescribed, Diabetic dietary guidelines, Decrease/maintain body weight Diabetes:: Patient communicates acknowledgment, Family communicates acknowledgment Sedentary Patient Sedentary Risk Factors Are:: Lack of regular exercise Recommendations Include:: Aerobic exercise 5-7 times/week for 20-30 minutes continuously, Benefits of regular exercise, Discussed home walking program, Monitored Outpatient Cardiac Rehab Sedentary Response Code:: Patient communicates acknowledgment, Family communicates acknowledgment Stress Recommendations Include:: Identification of stressors, and assessment of coping skills, Stress management techniques Stress Response Code:: Patient communicates acknowledgment, Family communicates acknowledgment
[2020-12-07] MEDS: Metoprolol Tartrate 25 MG Tablet 12.5 MG PO (21:25)
[2020-12-07] MEDS: Atorvastatin Calcium 80 MG Tablet PO (21:26)
[2020-12-07] MEDS: 0.9% Saline Lock 10 ML Syringe IV (21:32)
[2020-12-08] VITALS (7 sets, daily range): BP systolic 126–135; BP diastolic 72–89; PULSE 66–81; RESP 16–18; TEMP 36.8–36.9; O2SAT 94–96
[2020-12-08 06:28] LABS: Absolute Lymphocyte Count 1.41 X10^3/uL (0.83-4.51); Absolute Neutrophil Count 3.8 X10^3/uL (2.0-7.7); Basophil# 0.04 X10^3/uL; Basophil% 0.7 % (0-1); Eosinophil# 0.14 X10^3/uL; Eosinophils% 2.3 % (0-5); Hematocrit 40.6 % (40-54); Lymphocyte # 1.41 X10^3/ul (0.83-4.51); Lymphocyte % 23.6 % (19-41); Mean Corp Hgb Conc 34.5 g/dL (32-36); Mean Corpuscular Volume 87.1 fL (80-94); Mean Platelet Vol. 9.1 fl (6.2-12.0); Monocyte% 8.4 % (0-10); NRBC Flagged by Analyzer 0 % (0-5); Neutrophil # 3.81 X10^3/uL (2.7-7.7); Neutrophil % 63.8 % (47-70); Platelet Count 203 K/mm3 (150-450); RBC Distribution Width CV 12.5 % (11.6-14.6); RBC Distribution Width SD 39.8 fl (35.1-43.9); Red Blood Count 4.66 M/mm3 (4.6-6.2)
[2020-12-08 07:03] LABS: ALB/GLOB Ratio 1.2 RATIO (0.9-2.4); AST(SGOT) 22 U/L (15-37); Alanine Aminotransfer ALT/SGPT 58 U/L (16-61); Albumin, Serum 3.5 g/dL (3.2-5.0); Alkaline Phosphatase 32 U/L (45-117); Anion Gap 6 (5-15); BUN 14 mg/dL (7-18); BUN/Creat Ratio 13.1 RATIO (10-20); Bilirubin, Direct 0.22 mg/dL (0.00-0.30); Calcium,Total 8.4 mg/dL (8.5-10.1); Chloride 107 mmol/L (98-107); Creatinine, Serum 1.07 mg/dL (0.70-1.30); EST Glomerular Filtration Rate 75 mL/min (>60); Est Glom Filt Rate - Afr Amer 91 mL/min (>60); Estimated Creatinine Clearance 94.84 ml/min; Glucose 131 mg/dL (74-106); Magnesium 2.2 mg/dL (1.6-2.6); Phosphorus 3.4 mg/dL (2.5-4.9); Potassium 4.1 mmol/L (3.5-5.1); Protein, Total 6.5 g/dL (6.4-8.2); Sodium Level 139 mmol/L (136-145)
[2020-12-08] MEDS: TICAGRELOR 90 MG TABLET PO (08:37)
[2020-12-08] MEDS: Metoprolol Tartrate 25 MG Tablet 12.5 MG PO (08:37)
[2020-12-08] MEDS: Lisinopril 5 MG Tablet PO (08:37)
[2020-12-08] MEDS: Aspirin E.C. 81 MG Tablet PO (08:37)
--- NOTE | 2020-12-08 10:00 | EKG12_ITS ---
Test Reason : AM EKG Blood Pressure : / mmHG Vent. Rate : 069 BPM Atrial Rate : 069 BPM P-R Int : 182 ms QRS Dur : 110 ms QT Int : 400 ms P-R-T Axes : 061 037 069 degrees QTc Int : 428 ms Normal sinus rhythm Nonspecific T wave abnormality Abnormal ECG Confirmed by HENRIQUE BUTLER, BELLA ([id number]), film editor KHOA FREY ([id number]) on 12/11/2020 10:52:52 AM Referred By: DR KUNZ Confirmed By:BELLA DUENAS MD
--- NOTE | 2020-12-08 10:10 | DS.PCM_ITS ---
Providers Date of Admission: 12/07/20 Primary Care Physician: Dr. Arnie Willis MD Consultations 12/07/20 08:04 Consult: Cardiology Routine Consulting Provider: Sanya Waite Reason for Consult: unstable angina EMERGENT Consult: No MD Notified: Yes Date Notified: 12/07/20 Time Notified: 08:05 Method of Notification: Verbal Reason For Visit: UNSTABLE ANGINA Diagnosis Discharge Diagnosis (1) Unstable angina: Status: Acute Code(s): I20.0 - Unstable angina (2) Hyperglycemia: Status: Acute Code(s): R73.9 - Hyperglycemia, unspecified Medications at Discharge Home Medications sildenafil (pulm.hypertension) 20 mg PO PRN PRN 08/30/20 aspirin 81 mg PO DAILY@0800 #30 tab 12/08/20 atorvastatin 80 mg PO QHS #30 tab 12/08/20 lisinopril 5 mg PO DAILY #30 tab 12/08/20 metoprolol tartrate 12.5 mg PO BID #60 tab 12/08/20 ticagrelor [Brilinta] 90 mg PO BID #60 tab 12/08/20 Hospital Course Operations None Procedures Cardiac catheterization Summary of Care Provided Minutes Spent on Discharge: 39 Hospital Course: NIKKI DONALD, is a 60 M who presented to [facility] on 12/07/2020 complaining of chest pain. Patient reported that he had been experiencing intermittent chest pain since approximately . He recently started a walking program and had to discontinue this secondary to shortness of breath he was experiencing during his walks which was new. Recently, he has been having daily chest pain that has been more noticeable with exertion, even minimal exertion, and seems to subside with rest. His most recent episode was on the morning of admission when he got up to go to the bathroom. Upon walking to the bathroom he got left-sided chest pain that radiated to his left shoulder. He had some associated diaphoresis and shortness of breath. He denied any radiation of pain to his neck or jaw, nausea, or vomiting. He reported that his brothers both had coronary events in their 50s. He has no other significant risk factors that he does admit to cigar smoking occasionally. His vital signs in the emergency department were stable. He had ongoing chest pain which was treated with sublingual nitro x2 and had resolution of pain. His CBC is unremarkable. His BMP is unremarkable. His fasting glucose is mildly elevated at 143. His BNP was 3.2. His high-sensitivity troponin was 9.7 upon presentation. Chest x-ray was unremarkable. His EKG shows new deep T wave inversions in V1 V2 and V3 which resolved with his second nitroglycerin. He was admitted to PCU and taken to the Orthodontist Small Business Owner later that morning. Cardiac catheterization showed an EF of 55 to 60%, no gradients across the aortic or mitral valve, left ventricular end-diastolic pressure that was within normal limits, 90% stenosis of the proximal LAD, mid LAD nonobstructive atherosclerosis, OM 2 with 60-70% atherosclerosis, no disease in the left circumflex, and a dominant large RCA that had nonobstructive sclerosis that was 20%. BIBI to the proximal LAD was performed and the patient was started on aspirin and Brilinta. He will continue dual antiplatelet therapy x1 year. He was started on a low-dose beta-arlette, atorvastatin, and lisinopril as well. Hemoglobin A1c was obtained and was 6.5 indicating the patient is diabetic. Dietary changes, weight loss, and exercise were recommended for improvement. This was reviewed extensively with the patient. He is to follow-up as an outpatient for an elective IFR measurement of the OM1 to consider PCI. He is to follow-up with cardiology in 2 to 4 weeks. He is to follow-up with his primary care physician in 1 to 2 weeks. He has been cleared to go on vacation next Friday. I was able to face time with both he and his and answer all questions and we discussed side effects of medications. Physical Exam Const alert, oriented x3, no apparent distress, no limitations and well nourished Constitutional Narrative: Obese, upper middle-aged white male sitting up in a chair, appears comfortable, nontoxic, watching golf on television General Appearance: cooperative, comfortable, well kempt and well developed HEENT normocephalic, head/scalp atraumatic, hearing grossly normal bilaterally, moist oral mucous membranes, oropharynx normal and dentition normal Mouth: oral and palatal mucosa normal Eyes PERRL, EOMs intact bilaterally and conjunctivae normal Neck supple Neck Narrative: Trachea midline, Mallampati 2 Resp normal respiratory effort, no retractions, no use of accessory muscles and clear to auscultation bilaterally Auscultation: Negative for crackles, rales, rhonchi or wheezes Cardio regular rate, regular rhythm, S1 normal heart sound, S2 normal heart sound, no murmurs, no rub, no gallops, no clicks and no JVD GI normal to inspection, nondistended, normoactive bowel sounds, soft to palpation, non-tender and non-distended; Negative for hepatosplenomegaly Extremity normal to inspection, full ROM and no clubbing, cyanosis or edema General Extremity: Negative for edema Skin no rashes or lesions noted, no wounds, skin turgor normal and no jaundice Skin Narrative: Dressing at right wrist with no significant ecchymosis noted, no bleeding Neuro oriented x3, CN's II-XII intact bilaterally, moves all extremities, no focal motor deficits and no sensory deficits noted Sensorium / Orientation: awake, alert, oriented to person, oriented to place and oriented to time Speech: speech normal Motor Exam: strength 5/5 throughout Psych affect normal Psych Narrative: Seems slightly anxious but pleasant Weight / BMI Weight Weight: 126 kg Body Mass Index (BMI) 32.9 ABG / Lab / Microbiology Data Result Diagrams: 12/08/20 05:35 12/08/20 05:35 Laboratory: Laboratory Results - last 24 hr 12/07/20 12/07/20 12/08/20 12:25 12:25 05:35 WBC 6.5 6.0 RBC 4.93 4.66 Hgb 14.8 14.0 Hct 42.5 40.6 MCV 86.2 87.1 MCH 30.0 30.0 MCHC 34.8 34.5 RDW Std Deviation 38.8 39.8 RDW Coeff of Jose 12.3 12.5 Plt Count 224 203 MPV 9.0 9.1 Immature Gran % (Auto) 1.200 H Neut % (Auto) 63.8 Lymph % (Auto) 23.6 [place] % (Auto) 8.4 Eos % (Auto) 2.3 Baso % (Auto) 0.7 Absolute Neuts (auto) 3.8 Absolute Lymphs (auto) 1.41 Nucleated RBC % 0 Sodium Potassium Chloride Carbon Dioxide Anion Gap BUN Creatinine Estim Creat Clear Calc Est GFR (MDRD) Af Amer Est GFR (MDRD) Non-Af BUN/Creatinine Ratio Glucose Calcium Phosphorus Magnesium Total Bilirubin Direct Bilirubin AST ALT Alkaline Phosphatase Troponin I High Sens 29.2 Total Protein Albumin Globulin Albumin/Globulin Ratio 06/25/21 05:35 WBC RBC Hgb Hct MCV MCH MCHC RDW Std Deviation RDW Coeff of Jose Plt Count MPV Immature Gran % (Auto) Neut % (Auto) Lymph % (Auto) [place] % (Auto) Eos % (Auto) Baso % (Auto) Absolute Neuts (auto) Absolute Lymphs (auto) Nucleated RBC % Sodium 139 Potassium 4.1 Chloride 107 Carbon Dioxide 26.0 Anion Gap 6 BUN 14 Creatinine 1.07 Estim Creat Clear Calc 94.84 Est GFR (MDRD) Af Amer 91 Est GFR (MDRD) Non-Af 75 BUN/Creatinine Ratio 13.1 Glucose 131 H Calcium 8.4 L Phosphorus 3.4 Magnesium 2.2 Total Bilirubin 1.30 H Direct Bilirubin 0.22 AST 22 ALT 58 Alkaline Phosphatase 32 L Troponin I High Sens Total Protein 6.5 Albumin 3.5 Globulin 3.0 Albumin/Globulin Ratio 1.2 D/C Instructions Discharge Diet: Low fat / Low cholesterol and 1800 Calorie Control Diet Discharge Activity: Return to Normal Activity Return to work on: 12/11/20 May resume sexual activity in: No Restrictions Lifting Restrictions: Limit lifting more than 10 pounds with the right upper extremitiesx 24 hrs Meaningful Use Info Meaningful Use Diagnoses (Choose all that apply): None applicable Discharge Plan Admission Admit Date/Time: 12/07/20 07:44 Primary Reason for Your Visit: Unstable Angina Attending Provider: Alisia Jessica Primary Care Provider: Arnie Willis Consulting Providers: Sanya Waite Instructions Patient Instructions: ED Chest Pain, Noncardiac Discharge Orders/Prescriptions Prescriptions: New aspirin 81 mg Tablet,Delayed Release (Dr/Ec) 81 mg PO DAILY@0800 Qty: 30 RF: 11 atorvastatin 80 mg Tablet 80 mg PO QHS Qty: 30 RF: 1 lisinopril 5 mg Tablet 5 mg PO DAILY Qty: 30 RF: 1 metoprolol tartrate 25 mg Tablet 12.5 mg PO BID Qty: 60 RF: 1 Brilinta 90 mg Tablet 90 mg PO BID Qty: 60 RF: 1 No Action sildenafil (pulm.hypertension) 20 MG tablet 20 mg PO PRN PRN (Reason: enhancement) RF: 0 Referrals / Follow Up: Kevin Kruger MD [STAFF PHYSICIAN] - Within 2 Weeks (2 to 4 weeks) Arnie Willis MD [Primary Care Provider] - In 1 Week Disposition Disposition (needs filled in before D/C Order can be placed): Home, Self Care Charges/Coding Visit Charges Inpatient E&M: 33592 Disch Hosp
--- NOTE | 2020-12-08 10:28 | PCM.DC ---
Discharge Instructions Diet Discharge Diet: Low fat / Low cholesterol and 1800 Calorie Control Diet Activity Return to work on:: 12/11/20 May resume sexual activity in: No Restrictions Follow Up Care Test Results: Test results from this visit will be discussed in further detail at your follow-up appointment, if applicable. Discharge Plan Admission Admit Date/Time: 12/07/20 07:44 Primary Reason for Your Visit: Unstable Angina Attending Provider: Alisia Jessica Primary Care Provider: Arnie Willis Consulting Providers: Sanya Waite Instructions Patient Instructions: ED Chest Pain, Noncardiac Discharge Orders/Prescriptions Prescriptions: New aspirin 81 mg Tablet,Delayed Release (Dr/Ec) 81 mg PO DAILY@0800 Qty: 30 RF: 11 atorvastatin 80 mg Tablet 80 mg PO QHS Qty: 30 RF: 1 lisinopril 5 mg Tablet 5 mg PO DAILY Qty: 30 RF: 1 metoprolol tartrate 25 mg Tablet 12.5 mg PO BID Qty: 60 RF: 1 Brilinta 90 mg Tablet 90 mg PO BID Qty: 60 RF: 1 No Action sildenafil (pulm.hypertension) 20 MG tablet 20 mg PO PRN PRN (Reason: enhancement) RF: 0 Referrals / Follow Up: Kevin Kruger MD [STAFF PHYSICIAN] - Within 2 Weeks (2 to 4 weeks) Arnie Willis MD [Primary Care Provider] - In 1 Week Disposition Disposition (needs filled in before D/C Order can be placed): Home, Self Care
--- NOTE | 2020-12-08 10:50 | CASEMGMT ---
RN CM NOTE: Pt being discharged home on Brilinta. Per Abraham in [facility] pharmacy, Brilinta 30-day savings card has been applied and 1st 30 days will be free and refills will cost $50/month (co-pay). Pt/ made aware and pt states okay and voices appreciation. Pt/ deny having other discharge planning needs. [id number]
--- NOTE | 2020-12-08 11:05 | PHA.DC.MC ---
Pharmacy Service has performed discharge medication reconciliation and counseling for this patient. 1. ASPIRIN 81MG PO DAILY 2. ATORVASTATIN 80MG PO QHS 3. LISINOPRIL 5MG PO DAILY 4. METOPROLOL TARTRATE 12.5MG PO BID 5. TICAGRELOR 90MG PO BID The patient's discharge medication list was reviewed for discrepancies and discrepancies were resolved. Home Medications sildenafil (pulm.hypertension) 20 mg PO PRN PRN 08/30/20 aspirin 81 mg PO DAILY@0800 #30 tab 12/08/20 atorvastatin 80 mg PO QHS #30 tab 12/08/20 lisinopril 5 mg PO DAILY #30 tab 12/08/20 metoprolol tartrate 12.5 mg PO BID #60 tab 12/08/20 ticagrelor [Brilinta] 90 mg PO BID #60 tab 12/08/20 The patient was counseled on the following discharge medications and changes in medications for homegoing were reviewed. The Reason for Use, instructions for use, and potential side effects were reviewed for all new medications. The patient's questions regarding all of their medications were answered. The patient was able to verbally demonstrate an understanding of their discharge medications.
== END 2020-12-08 10:19 | disposition home or self-care (01) ==
LOC: ED 07:32 → PCU 12:52
PROVIDERS: Internal Medicine Interventional Cardiology; Admitting Provider Internal Medicine; Emergency Provider Emergency Medicine; PCP Family Medicine; Visit Provider Internal Medicine
DX: I25.110 Atherosclerotic heart disease of native coronary artery with unstable angina pectoris (principal); E11.65 Type 2 diabetes mellitus with hyperglycemia; F17.290 Nicotine dependence, other tobacco product, uncomplicated; I27.21 Secondary pulmonary arterial hypertension; Z87.19 Personal history of other diseases of the digestive system; Z82.49 Family history of ischemic heart disease and other diseases of the circulatory system
CPT/HCPCS: 36415; 71045; 80048; 80053; 82248; 83036; 83735; 83880; 84100; 84484; 85025; 85027; 92928; 93005; 93458; 96360; 96361; 99152; 99153; 99218; 99251; 99285; 99406; J7030; J7040; Q9967; A4216; C1725; C1769; C1874; C1887; C1894; C9600; G0378; G0463; J1327

== ENCOUNTER → 2020-12-28 07:43 | Outpatient (CLI) | payer BC, SELFPAY ==
[2020-12-13 08:50] VITALS: BMI 32.5
--- NOTE | 2020-12-28 07:53 | PCM.CR.ITP ---
Diagnosis - General Information Admitting Diagnosis: PCI w/coronary stent placement 12/07/2020 Personal Learning Style:: Audio/Visual, Written Barriers to Learning: Vision Impairment Gave educational material for:: Treating Heart Disease, Emotions & Heart Disease, Stress Management & Relaxation, Sleep Disorders & Heart Disease, How The Heart Works, What it means to have Heart Disease, How Coronary Artery Disease is Diagnosed, Heart Procedures, What Heart Medications Do, Risk Factors & Modifications, Living an Active Life, Nutrition - Education/Goals Individual Counseling: Initial Assessment: Nicotine/Smoking, Abnormal Cholesterol Levels, High Blood Pressure, Overweight/Obesity Cardiac Rehabilitation Goals: 1. Maintain the individual as the primary focus of care. 2. To improve the patient's quality of life. 3. Identification of cardiac risk factors and provide cardiac risk factor management. 4. Enhance the psychosocial status of the patient. 5. Reconditioning enough to allow the patient to resume customary activities. 6. Control symptoms of cardiac disease Personal Goals: Initial Assessment: Quit smoking (participate in smoking cessation, Improve energy level, Participate in home exercise program, Improve knowledge of cardiac disease, Improve muscle strength and endurance, Improve diet and eating habits (eat healthier), Control risk factors (learn risk factor modification) Scale for measuring improvement of personal goals: Enter appropriate number in Comments. 2 = Unchanged. 3 = Slightly Better. 4 = Moderate Improvement. 5 = Met my Goal - Diagnosis & Disease Process Outcomes/Goals: Pt IDs own risk factors & lifestyle modifications by Session 10, Verbalizes symptoms of angina & response by session 3., Pt independently manages Plan/Interventions: Assist Pt to ID & engage in lifestyle modification to reduce CVD risk, Instruct on individual risk factors, Review symptoms of angina & emergency actions, Review secondary diagnosis & identify educational needs. - Safety Referral to Physical Therapy: No Referral to [facility] Case Management: No Fall Risk Assessed:: Yes Assistive Devices:: None Exercise - Initial Assessment - Visit Date of Eval: 12/28/20 Session #:: 0 - pre-cardiac rehab evalutation Mets: Pre-: >7 METS for 30 minutes by discharge - Physician Prescribed Exercise Modalities: Treadmill, Rower, Airdyne Frequency: 3x/week for 12 weeks [36 sessions] Intensity: 60-80% of age predicted maximum heart rate reserve Current METSs:: 4.0 Target Heart Rate:: 105-138 Resting Blood Pressure: 134/78 EKG Type: NSR w/nonspecific T wave abnormality - Outcomes & Goals Goals:: Verbalizes understanding of THR, RPE & goal METS by session 6, Documents in home exercise log/reports 30 min aerobic 5 day/wk by DC, Demonstrates accurate pulse taking by DC - Intervention & Plan Exercise Program Goals: Instruct on personal THR & RPE, Instruct on MET level & personal MET goal, Instruct on home exercise - Physical Activity Home Exercise Physical Activity - Home Exercise: Safe Exercise, Warm-up, Self-monitoring, Cool-Down, Home Exercise > 30 min Daily, Sitting Time <3 hours/daily - Outcomes & Goals Outcomes/Goals: Demonstrates correct Warm-up/exercise Cool-Down (S3) if = 2.5 METs, Verbalizes symptoms of exercise intolerance by Session 3 (S3), Demonstrate safe equipment use (S3) & follows exercise prescrition (6) - Intervention & Plan Plan/Intervention: Instruct warm-up & cool-down if exercising at > 2 METs, Instruct on symptoms of exercise intolerance & actions to take, Instruct & monitor on saf, Assess intial functional capacity & safety risk Nutrition - Initial Assessment - Program Goals Nutrition Program Goals: LDL <100 optimal. 100 - 129 Near optimal. 130 - 159 Borderline High. 160 - 189 High. Total Cholesterol <200 desirable. 200 - 239 Borderline High. >/= 240 High. HDL < 40 Low >/=60 High. Triglycerides <150 desirable. <199 optimal. VlDL 5 - 40. HgbA1C <7%. BMI <25 Patient has diagnosis of Hyperlipidemia (ICD E78)?: Yes - Visit Date of Assessment:: 12/28/20 Session #:: 0 - pre-cardiac rehab evaluation - Cholesterol/Lipids Triglycerides (mg/dL): 396 Total Cholesterol (mg/dL): 209 LDL Cholesterol (mg/dL): 102 HDL Cholesterol (mg/dL): 28 Determine presence & major risk factors that modify LDL goal: Cigarette smoking, Hypertension or hypertensive medication, Low HDL cholesterol <40 mg/dL*, Family history of premature CHD in Male < 55 years: female <65 yearsFa - two brothers have heart issues; father 87 no heart history., Age men > 45 years; women >/= 55 years Outcomes/Goals: Pt IDs own risk factors & lifestyle modifications by Session 10, Verbalizes symptoms of angina & response by session 3., Pt independently manages Intervention/Plan: Instruct on personal lipid levels & lipid goals/NCEP guidelines, Instruct on cholesterol - Diabetes (Other Core Measures) Diabetes Type: Not Applicable - Weight Mgt (Other Care) Not Applicable: No Height: 6 ft 5 in Weight:: 274 lb BMI: 32.5 Diagnosis Overweight/Obesity BMI> 30% ICD-10 E66: Yes Diagnosis High BMI/Morbid Obesity BMI> 35% ICD-10 Z68: No Outcomes/Goals: Pt sets, maintains & shows weight loss goal & trend during rehab Intervention/Plan: Instruct on ideal BMI & set weight loss goal w/patient, Assist pt to ID & incorporate diet changes for weight loss by S9, Refer to Structured Weight Loss program as appropriate, Encourage goal of using 250-300dcal per session for weight loss - Healthy Eating Habits Will attend diet classes:: Yes Outcomes/Goals:: Consume diet rich in vegs,fruits,whole grain/high fiber,fish,lean meat, Limit sat/trans fats,cholesterol & added salts & sugars Intervention/Plan:: Assess current eating habits Nutrition - 30-Day Assessment Nutrition - 60-Day Assessment Nutrition - 90-Day Assessment Nutrition - Final Assessment Medical - Initial Assessment - Visit Date of Eval: 12/28/20 Session #:: 0 - pre-cardiac rehab evaluation - Medication Compliance Preventative Medication(s):: Aspirin, Ticagrelor/P2Y12 inhibitor, Beta arlette H/O mental health issues: depression, anxiety, or addiction?: No Doesn?t believe in the benefits of treatment?: No Believes medications are unnecessary or harmful?: No Has a concern about medication side effects?: No Outcomes/Goals: Verbalizes medications,desired effect & common side effects @ DC, Pt self-reports following medication regimen, Keeps card in wallet w/medications listed by DC Interventions/plans: Instruct on medication effects & side effects, Review medication list w/patient every two weeks, Instruct importance of taking meds as ordered & assist problem solving - Tobacco Use Tobacco Use: Cigarettes Do you use smokeless tobacco?: Yes Outcomes/Goals: Smoking cessation achieved or maintained by discharge, Identify aids/strategies for achieving smoking cessation by session 6 Interventions/plan: Instruct on effects of smoking & provide smoking cessation resource, Assist pt to set quit date & provide encouragement, Assist pt to develop strategies to achieve/maintain quit date, Assist pt w/nicotine replacement & medication for cessation success - Hypertension Hypertension Diagnosis:: Hypertension ICD-10 I10 Resting Blood Pressure:: 134/78 [place] [employer] Hypertension Guidelines: [place] [employer] Hypertension Guidelines. Normal BP Less than 120/80. Elevated BP 120/80. Hypertension Stage 1: BP 130-139/80-89. Hypertesnion Stage 2: BP 140 or higher/90 or higher. Hypertension Crisis: BP higher than 180/120 Outcomes/Goals: Able to verbalize/achieve optimal blood pressure <130/80, Incorporates diet changes & exercise for blood pressure control by DC Interventions/plan: Instruct on optimal blood pressure, hypertension & medications, Instruct on effects of sodium, alcohol, stress, exercise &hypertension - Tobacco Cessation Referral Smoking Cessation Referral:: Yes Individual Education/Counseling:: Yes - Smoking Cessation Counseling Education Schedule Given:: Yes Medical- 30-Day Assessment Medical- 60-Day Assessment Medical- 90-Day Assessment Medical - Final Assessment Psychosocial - Initial Assess - VIsit Date of Eval: 12/28/20 Session #:: 0 - pre-cardiac rehab evaluation Not Applicable: Yes History of previous Mental disease:: No Self-reported stressors: Other, Recent Illness - Psychosocial Test Tool Used:: [employer] QOL Cardiac, PHQ-9 Questionnaire phq-9 Severity: Severity. 1-4 Minimal Depression. 5-9 Mild Depression. 10-14 Moderate Depression. 15-19 Moderately Sever Depression. 20-27 Severe Depression. Rule: - Referral to Behavioral Health PS - Interventions: Yes Attend Stress Management Classes, No Referral to Behavioral Health if PHQ-9 score >9:, No Referral to [facility], No Referral to Physician if PHQ-9 if score is 5-9: - Outcomes/Goals: See list Psychosocial Outcomes/Goals:: ID's personal stressors & 2 strategies to manage stress by discharge - Intervention/Plan: See List Interventions/Plan:: Assess stressors,coping strategies & signs of derpression on admission, Instruct/assist pt to develop coping & personal stress Mgt strategies, Instruct patient to recognize signs & symptoms of depression, Instruct patient to recog Psychosocial - 30-Day Assess Psychosocial - 60-Day Assess Psychosocial - 90-Day Assess Psychosocial - Final Assessmen Patient Health Questionnaire Initial Assessment 1. Little interest or pleasure in doing things: Not at all 2. Feeling down, depressed, or hopeless: Not at all 3. Trouble falling or staying asleep, or sleeping too much: Not at all 4. Feeling tired or having little energy: Not at all 5. Poor appetite or overeating: Not at all 6. Feeling bad about yourself -- or that you are a failure or have let yourself or your family down: Not at all 7. Trouble concentrating on things, such as reading the newspaper or watching television: Not at all 8. Moving or speaking so slowly that other people could have noticed. Or the opposite - being so fidgety or restless that you have been moving around a lot more than usual: Not at all 9. Thoughts that you would be better off , or of hurting yourself in some way: Not at all How difficult have these problems made it for you to do your work, take care of things at home, or get along with other people?: Not difficult at all Total Score: 0 MEHDI-Q SV Test - Statements CAD is a disease of the arteries in the heart: False Examples of risk factors for heart disease: True Angina is chest pain or discomfort: True The benefits of resistance training include: True Eating more meat and dairy products: False Anti-platelet medications such as aspirin are important: True The only effective way to manage stress: False An exercise warm-up slowly increases heart rate: I Don't Know Prepared, processed foods usually have high sodium: True Depression is common after a heart attack: True The statin medications lower cholesterol: I Don't Know To control blood pressure, lower the amount of sodium: True If someone gets chest discomfort during walking: False Transfats are partially hydrogenated vegetable oils: I Don't Know Sleep apnea that is not treated increases the risk: False To control cholesterol, one should become a vegetarian: False Someone knows if he/she is exercising at the right level: True Diabetes cannot be prevented with exercise & health eating: False Stress is a large risk for heart attack: True A diet that can help lower blood pressure is rich in: True - Total Score Total Correct Responses: 17 Self-Efficacy Initial Assessment We would like to know how confident you are in doing certain activities. Please select your confidence level for:: Select your confidence level for the following using the scale 1-10 where 1 is not at all confident and 10 is totally confident. Your score is the average of all 6 responses. Fatigue: How confident are you that you can keep the fatigue caused by your disease from interfering with the things you want to do? Select Number: 9 Physical Discomfort or Pain: How confident are you that you can keep the physical discomfort or pain of your disease from interfering with the things you want to do? Select Number: 10 Emotional Distress: How confident are you that you can keep the emotional distress caused by your disease from interfering with the things you want to do? Select Number: 10 Other Symptoms or Health Problems: How confident are you that you can keep other symptoms or health problems from interfering with the things you want to do? Select Number: 9 Different Tasks and Activities: How confident are you that you can do the different tasks and activities needed to manage your health condition so as to reduce your need to see a doctor? Select Number: 9 Medication: How confident are you that you can do things other than just taking medication to reduce how much your illness affects your everyday life? Select Number: 9 Total Score:: 9 Nutrition Survey - Nutrition Survey Initial Have you lost >10 lbs over the past 2 months without trying?: No Are you following a special diet at home for diabetes, low fat, or low salt?: Yes - Starting to watch diet, no added salt, low fat. Are you interested in meeting with a dietitian for help understanding your diet?: Yes - As long as it would not interfer with work hours Do you eat less than 3 meals a day?: No - Not now Do you eat fatty meats (harden, sausage, ribs, etc), fried foods, desserts, large amounts of salad dressings, margarine, butter, or cheese most days?: No - Some of the time Do you have food allergies? [Enter types in comment field]: No Do you eat in restaurants more than 3 times a week?: Yes Do you season food with salt, seasoning salt, or garlic salt?: Yes Do you used canned, boxed, frozen meals, or soups, seasoning packets?: No Total Score:: 4
--- NOTE | 2020-12-28 07:53 | PCM.CR.HP2 ---
CR - History & Physical - General Arrival date:: 12/28/20 Arrival time:: 07:53 Date of Referral:: 12/07/20 Date of CR Evaluation:: 12/28/20 Referring Physician: Dr. Kevin Kruger Primary Diagnosis: PCI w/coronary stenting - History of Present Cardiac Event Onset Date: Enter Onset Date of cardiac illnesses in Comment field below PTCA or coronary stenting:: Yes - 12/07/2020 blockages in the LAD coronary artery Type of Symptoms:: chest discomfort pressure like sensation - presented to emergency room Interventions with present event:: heart cath sunsequent PCI intervention and stent placement Were there any complications?: still having some light pressure in the chest and in the left arm. - Sleep Disorder Evaluation Hx of Sleep Apnea: No Do you snore loudly (louder than talking or can be heard through closed doors)?: Yes - usually get 7 hours of sleep at night. Do you often feel tired/ fatigued/ sleepy during daytime?: No - generally feel pretty good. Has anyone observed you stop breathing during sleep?: Yes History of Hypertension (for STOP score): Yes STOP Results: Positive - Medications Home Medications: Ambulatory Orders Medication Instructions Recorded sildenafil (pulm.hypertension) 20 mg PO PRN PRN 08/30/20 aspirin 81 mg PO DAILY@0800 #30 tab 12/08/20 atorvastatin 80 mg PO QHS #30 tab 12/08/20 metoprolol tartrate 12.5 mg PO BID #60 tab 12/08/20 ticagrelor [Brilinta] 90 mg PO BID #60 tab 12/08/20 lisinopril 5 mg tablet 5 mg PO DAILY tab 12/13/20 - Allergies Allergies/Adverse Reactions: Allergies No Known Allergies Allergy (Verified 12/13/20 08:50) Advanced Directives - Advanced Directives Power of High School Coach: No Living Will: No Advance Directives Information Provided: Yes Advance Directives on File: No DNR Order?:: No - MOLST See MOLST form: No Past Medical History - Covid-19 Screening Fever: No Unexplained muscle aches: No Current respiratory symptoms: No Upper respiratory infections symptoms: No Gastro-intestinal symptoms: No Tjj-[id number]-Adptgc symptoms: No Has tested positive for COVID-19 in last 30 days: No Date of testin/15/21 - Have not had the vaccine; tested twice week at work Had contact w/person w/symptoms or Covid-19 (+) last 14 days: Yes Has High Risk Exposures ID'd by Health dept/Inf Control team: No 65 years or older:: No Lives in Assisted Living facility:: No Has a chronic lung disease or moderate to severe asthma:: No Has a serious heart condition:: No Severely obese (Body Mass Index of 40 or higher):: No Diabetic:: No Has chronic kidney disease undergoing dialysis:: No Has liver disease:: No - Past Medical Illness Medical History: Past Medical History (Last Reviewed 12/13/20 @ 11:[address] Kevin Kruger MD) Atherosclerotic heart disease of [place] coronary artery without angina pectoris I25.10 Hemorrhoids K64.9 Hyperlipidemia E78.5 Incomplete right bundle branch block I45.10 Screening for intestinal cancer Z12.10 Stomach ulcer K25.9 Umbilical hernia without obstruction or gangrene K42.9 - Past Surgical History Surgical History: Past Surgical History (Last Reviewed 12/13/20 @ 11:[address] Kevin Kruger MD) History of coronary artery stent placement Onset Date: 12/07/20 Z95.5 [id number] LAD w/ 3.0 x 15 mm Orsiro Stent 12/07/20 History of lithotripsy Z98.890 History of umbilical hernia repair Onset Date: 08/2020 Z98.890, Z87.19 - Family History Summary Family History: Family History (Last Reviewed 12/13/20 @ 11:[address] Kevin Kruger MD) Mother Breast cancer Colon cancer Brother Heart disease Social History - Smoking History Smoking Status: Light Smoker (<10/day) Hx Tobacco Use: Yes Hx Smoking Exposure: Yes - Alcohol Use Alcohol Usage: Yes - a few times per month - Substance Abuse Hx Substance Use: No - Occupation Occupation (List type of work in comments):: Employed Hours worked per day:: 8 Returned to work on:: 12/11/20 - Hobbies, Recreation, Social Activities Hobbies: Sports - Golfing, Other - No more [employer]!- Coffee Recreational Activities: I am able to engage in all my recreational activities - energy level has increased, but still concerned with discomfort in left arm Social Environment - Status Marital Status: - 3 - Current Living Arrangements Living Environment:: Spouse - Children Do any of your children live nearby?: Yes - Manoj, [place], out of state - Safety Do you feel safe in your surroundings?: Yes - Assistance Do you need any assistance at home?: no Review of Systems - Review of Systems Hints: Right click = Denies ([place]). Left click = Reports ([place]) Review of Present Symptoms: Reports: Heart Arrhythmia/Irregularities - Incomplete right bundle branch block on EKG, Appetite - Normal, Appetite - Special Diet - eating better, low salt and low fat, cutting back on portions., Sleep - Normal, Sexual Changes. Denies: Shortness of Breath at Rest, Shortness of Breath with Exertion, Angina - NOt angina, but still have some tingling and dullness in the chest adn down the left arm., Dizziness/Lightheadedness, Fatigue - Pain Is Patient Pain Free?: Yes Pain Location: none Pain Level: 0/10 Risk Factor Assessment - Chief Complaint Chief Complaint: 60 yr old male patient pf Dr. Kruger's who presents to cardiac rehab today following recent cardiac event. Patient presented to emergency room on 12/07/2020 with chest discomfort described as pressure like sensation. Upon examination cardiac enzymes were increased and EKG changes documented patient taken to clinical lab specialist for heart cath procedure. - Vital Signs Temperature: 97.5 F Respiratory Rate: 16 Pulse Ox: 98 Blood Pressure: 134/78 - Pulse Pulse Rhythm: Regular - Hypertension Blood Pressure Sitting - Left Arm: 134/78 - Stress Stress: Recent, Work-related - Blood Cholesterol/Lipids Total Cholesterol (mg/dL) Goal = less than 200 mg/dL: 209 HDL Cholesterol (mg/dL) Goal = less than 40 mg/dL: 28 LDL Cholesterol (mg/dL) Goal = less than 70 mg/dL: 102 Triglycerides (mg/dL) Goal = less than 150 mg/dL: 396 - Obesity Height: 6 ft 5 in Weight:: 274 lb Weight in Pounds: 274.0 lbs Weight Source: Stated by Patient Body Mass Index (BMI): 32.5 Nutritional Referral for Obesity: Yes - Risk Stratification Risk Guidelines: Lowest Risk: Risk Factor for Smoking - cut down smoking; has had a cigar in the past few weeks., Risk Factor for Dyslipidemia, Risk Factor for Diabetes, Risk Factor for Sedentary Lifestyle, Risk Factor for Depression, Moderate Risk: Risk Factor for Hypertension, Highest Risk: Risk Factor for Obesity - Family History Family History: Family History (Last Reviewed 12/13/20 @ 11:[address] Kevin Kruger MD) Mother Breast cancer Colon cancer Brother Heart disease Motivation - Motivation to Participate On a scale of 1 to 10, how prepared are you to commit to attending program?: 9 What do you see as barriers to successfully being able to complete the program?: work hours What do you see as the benefits of succesfully completing the program? In other words, what do you hope to get out of participating in the program?: healthier, more stamina Are there issues you are dealing with that will interfere with completing the program?: inconveience Do you have a spouse or signficant other, family or friends who will help support you to complete the program?: yes.
[2020-12-28 08:16] VITALS: BP 134/78; BMI 32.5
[2020-12-28 08:34] VITALS: BP 134/78; RESP 16; TEMP 36.4; O2SAT 98; BMI 32.5
== END ==
PROVIDERS: PCP Family Medicine; Referring Provider Internal Medicine Cardiovascular Disease; Visit Provider Internal Medicine Cardiovascular Disease
DX: Z95.5 Presence of coronary angioplasty implant and graft (principal)

== ENCOUNTER → 2020-12-29 06:15 | Outpatient (CLI) | payer BC, SELFPAY ==
[2020-12-13 08:50] VITALS: BMI 32.5
[2020-12-28 08:16] VITALS: BMI 32.5
[2020-12-28 08:34] VITALS: BMI 32.5
--- NOTE | 2020-12-29 13:15 | STRESSREP ---
Stress Test Report Exercise stress test. 60-year-old male with a history of coronary artery disease and chest pain. Stress protocol: Resting EKG demonstrates normal sinus rhythm with a rate of 62 bpm normal intervals are noted resting blood pressure is 142/88 mmHg. The patient exercised according to regular Quang protocol for total duration of 7 minutes. The maximum heart rate attained was 141 bpm which was 87% of max impact her heart rate the maximum workload was 8.5 metabolic equivalents. Patient completed 1 minute into stage III of the Quang protocol. At rest there were no ST or T wave changes noted to suggest ischemia. At peak exercise upsloping ST changes were noted with did not meet the criteria for ischemia. No clinical angina was noted. The resting blood pressure was 142/88 with a peak blood pressure of 210/80 mmHg. Rate-pressure product was 26,200. Myocardial perfusion protocol. 14.5 mCi of technetium 99m sestamibi was injected at rest. The patient exercised according to regular Quang protocol. At peak exercise 44.2 mCi of technetium 99m sestamibi was injected stress images were obtained stress and rest images were reconstructed and compared in the short axis vertical long horizontal long axis. Gated images were also obtained per Perfusion SPECT analysis: Review of the stress images demonstrate normal uptake of tracer noted in all areas of the myocardium the resting images similarly demonstrate normal uptake of tracer noted in all areas of the myocardium. No areas of reversibility are noted to suggest ischemia and no previous infarct is noted. Gated SPECT analysis: The gated ejection fraction is 67%. Conclusion: Normal exercise myocardial perfusion stress test at a moderate workload. Preserved ejection fraction.
== END ==
PROVIDERS: PCP Family Medicine; Referring Provider Internal Medicine Cardiovascular Disease; Visit Provider Internal Medicine Cardiovascular Disease
DX: I25.10 Atherosclerotic heart disease of native coronary artery without angina pectoris (principal); E78.5 Hyperlipidemia, unspecified; Z95.5 Presence of coronary angioplasty implant and graft
CPT/HCPCS: 78452; 93017; A9500; A4216

== ENCOUNTER 2021-01-12 08:00 | Outpatient (RCR) | payer BC, SELFPAY ==
[2020-12-28 08:16] VITALS: BMI 32.5
[2020-12-28 08:34] VITALS: BMI 32.5
== END 2021-01-13 23:59 ==
LOC: CR 08:00
PROVIDERS: PCP Family Medicine; Referring Provider Internal Medicine Cardiovascular Disease; Visit Provider Internal Medicine Cardiovascular Disease
DX: I25.10 Atherosclerotic heart disease of native coronary artery without angina pectoris (principal); Z95.5 Presence of coronary angioplasty implant and graft; I45.10 Unspecified right bundle-branch block; E78.5 Hyperlipidemia, unspecified
CPT/HCPCS: 93798

== ENCOUNTER 2021-02-09 08:00 | Outpatient (RCR) | payer BC, SELFPAY ==
[2020-12-28 08:16] VITALS: BMI 32.5
[2020-12-28 08:34] VITALS: BMI 32.5
--- NOTE | 2021-01-30 06:03 | PCM.CR.ITP ---
Diagnosis Exercise - 30-day Assessment - Visit Date of Eval: 01/30/21 Session #:: 13 - 100% attendance - Physician Prescribed Exercise Modalities: Treadmill, Rower, Airdyne Frequency: 3x/week for 12 weeks [36 sessions] Intensity: 60-80% of age predicted maximum heart rate reserve Current METSs:: 7.0 increase from 5.0 Target Heart Rate:: 138-162 Current RPE:: 13-14 Maximum Excercise HR:: 116 Resting Blood Pressure: 100/60 Maximum Exercise Blood Pressure: 178/72 - on airdyne bike EKG Type: NSR to sinus tach w/ occas. PAC and PVC. - Outcomes & Goals Goals:: Verbalizes understanding of THR, RPE & goal METS by session 6, Documents in home exercise log/reports 30 min aerobic 5 day/wk by DC, Demonstrates accurate pulse taking by DC - Intervention & Plan Exercise Program Goals: Instruct on personal THR & RPE, Instruct on MET level & personal MET goal, Show patient to take own pulse /validate performance until accurate, Instruct on home exercise - 30-day Reassessments 30 day Reassessments:: Met - Physical Activity Home Exercise Physical Activity - Home Exercise: Safe Exercise, Warm-up, Self-monitoring, Cool-Down, Home Exercise > 30 min Daily, Sitting Time <3 hours/daily - Outcomes & Goals Outcomes/Goals: Demonstrates correct Warm-up/exercise Cool-Down (S3) if = 2.5 METs, Verbalizes symptoms of exercise intolerance by Session 3 (S3), Demonstrate safe equipment use (S3) & follows exercise prescrition (6) - Intervention & Plan Plan/Intervention: Instruct warm-up & cool-down if exercising at > 2 METs, Instruct on symptoms of exercise intolerance & actions to take, Instruct & monitor on saf, Assess intial functional capacity & safety risk - 30-day Reassessments 30 day Reassessments:: Met Nutrition - Initial Assessment Nutrition - 30-Day Assessment - Program Goals Nutrition Program Goals: LDL <100 optimal. 100 - 129 Near optimal. 130 - 159 Borderline High. 160 - 189 High. Total Cholesterol <200 desirable. 200 - 239 Borderline High. >/= 240 High. HDL < 40 Low >/=60 High. Triglycerides <150 desirable. <199 optimal. VlDL 5 - 40. HgbA1C <7%. BMI <25 Patient has diagnosis of Hyperlipidemia (ICD E78)?: Yes - Visit Date of Assessment:: 01/30/21 Session #:: 13 - Cholesterol/Lipids Triglycerides (mg/dL): 396 - 12/06/2020 Total Cholesterol (mg/dL): 209 LDL Cholesterol (mg/dL): 102 HDL Cholesterol (mg/dL): 28 Determine presence & major risk factors that modify LDL goal: Hypertension or hypertensive medication, Low HDL cholesterol <40 mg/dL*, Age men > 45 years; women >/= 55 years Outcomes/Goals: Pt IDs own risk factors & lifestyle modifications by Session 10, Verbalizes symptoms of angina & response by session 3., Pt independently manages Intervention/Plan: Instruct on personal lipid levels & lipid goals/NCEP guidelines, Instruct on cholesterol Referral to dietitian:: Yes - Medical Nutrition Therapy 30-day Reassessments:: Progressing - Diabetes (Other Core Measures) Diabetes Type: Not Applicable - Weight Mgt (Other Care) Not Applicable: Yes Height: 6 ft 5 in Weight:: 275 lb BMI: 32.5 Diagnosis Overweight/Obesity BMI> 30% ICD-10 E66: Yes Diagnosis High BMI/Morbid Obesity BMI> 35% ICD-10 Z68: No Outcomes/Goals: Pt sets, maintains & shows weight loss goal & trend during rehab Intervention/Plan: Instruct on ideal BMI & set weight loss goal w/patient, Assist pt to ID & incorporate diet changes for weight loss by S9, Refer to Structured Weight Loss program as appropriate, Encourage goal of using 250-300dcal per session for weight loss 30 day Reassessments:: Not Met - not lost any weight - Healthy Eating Habits Will attend diet classes:: Yes Outcomes/Goals:: Consume diet rich in vegs,fruits,whole grain/high fiber,fish,lean meat, Limit sat/trans fats,cholesterol & added salts & sugars Intervention/Plan:: Assess current eating habits 30-day Reassessments:: Not Met - Education Gave educational materials for:: Healthy eating Nutrition - 60-Day Assessment Nutrition - 90-Day Assessment Nutrition - Final Assessment Medical - Initial Assessment Medical- 30-Day Assessment - Visit Date of Eval: 01/30/21 Session #:: 13 - Medication Compliance Preventative Medication(s):: Aspirin, Ticagrelor/P2Y12 inhibitor, Statin/lipid, Beta arlette H/O mental health issues: depression, anxiety, or addiction?: No Doesn?t believe in the benefits of treatment?: No Believes medications are unnecessary or harmful?: No Has a concern about medication side effects?: No Expresses concern over the cost of medications?: No Outcomes/Goals: Verbalizes medications,desired effect & common side effects @ DC, Pt self-reports following medication regimen, Keeps card in wallet w/medications listed by DC Comments:: 01/10/2021 increased metoprolol to 25mg BID. Interventions/plans: Instruct on medication effects & side effects, Review medication list w/patient every two weeks, Instruct importance of taking meds as ordered & assist problem solving 30-day Reassessments:: Progressing - Tobacco Use Tobacco Use: Non-smoker - Hypertension Hypertension Diagnosis:: Hypertension ICD-10 I10 Resting Blood Pressure:: 100/60 - well controlled with medication [place] [employer] Hypertension Guidelines: [place] [employer] Hypertension Guidelines. Normal BP Less than 120/80. Elevated BP 120/80. Hypertension Stage 1: BP 130-139/80-89. Hypertesnion Stage 2: BP 140 or higher/90 or higher. Hypertension Crisis: BP higher than 180/120 Peak Exercise Blood Pressure:: 178/72 - on Airdyne Bike Outcomes/Goals: Able to verbalize/achieve optimal blood pressure <130/80, Incorporates diet changes & exercise for blood pressure control by DC Interventions/plan: Instruct on optimal blood pressure, hypertension & medications, Instruct on effects of sodium, alcohol, stress, exercise &hypertension 30 day Reassessments:: Progressing - Tobacco Cessation Referral Smoking Cessation Referral:: No Individual Education/Counseling:: No Education Schedule Given:: Yes Medical- 60-Day Assessment Medical- 90-Day Assessment Medical - Final Assessment Psychosocial - Initial Assess Psychosocial - 30-Day Assess - VIsit Date of Eval: 01/30/21 Session #:: 13 Not Applicable: Yes History of previous Mental disease:: No - Psychosocial Test Tool Used:: PHQ-9 Questionnaire phq-9 Severity: Severity. 1-4 Minimal Depression. 5-9 Mild Depression. 10-14 Moderate Depression. 15-19 Moderately Sever Depression. 20-27 Severe Depression. Rule: - Referral to Behavioral Health PS - Interventions: Yes Attend Stress Management Classes, No Referral to Behavioral Health if PHQ-9 score >9:, No Referral to [facility], No Referral to Physician if PHQ-9 if score is 5-9: - Outcomes/Goals: See list Psychosocial Outcomes/Goals:: ID's personal stressors & 2 strategies to manage stress by discharge - Intervention/Plan: See List Interventions/Plan:: Assess stressors,coping strategies & signs of derpression on admission, Instruct/assist pt to develop coping & personal stress Mgt strategies, Instruct patient to recognize signs & symptoms of depression, Instruct patient to recog - 30-day Reassessments: 30 day Reassessments:: Progressing Psychosocial - 60-Day Assess Psychosocial - 90-Day Assess Psychosocial - Final Assessmen Patient Health Questionnaire 30-Day Re-eval Assessment 1. Little interest or pleasure in doing things: Not at all 2. Feeling down, depressed, or hopeless: Not at all 3. Trouble falling or staying asleep, or sleeping too much: Not at all 4. Feeling tired or having little energy: Not at all 5. Poor appetite or overeating: Not at all 6. Feeling bad about yourself -- or that you are a failure or have let yourself or your family down: Not at all 7. Trouble concentrating on things, such as reading the newspaper or watching television: Not at all 8. Moving or speaking so slowly that other people could have noticed. Or the opposite - being so fidgety or restless that you have been moving around a lot more than usual: Not at all 9. Thoughts that you would be better off , or of hurting yourself in some way: Not at all How difficult have these problems made it for you to do your work, take care of things at home, or get along with other people?: Not difficult at all Total Score: 0 Self-Efficacy 30-Day Re-eval Assessment We would like to know how confident you are in doing certain activities. Please select your confidence level for:: Select your confidence level for the following using the scale 1-10 where 1 is not at all confident and 10 is totally confident. Your score is the average of all 6 responses. Fatigue: How confident are you that you can keep the fatigue caused by your disease from interfering with the things you want to do? Select Number: 10 Physical Discomfort or Pain: How confident are you that you can keep the physical discomfort or pain of your disease from interfering with the things you want to do? Select Number: 10 Emotional Distress: How confident are you that you can keep the emotional distress caused by your disease from interfering with the things you want to do? Select Number: 10 Other Symptoms or Health Problems: How confident are you that you can keep other symptoms or health problems from interfering with the things you want to do? Select Number: 10 Different Tasks and Activities: How confident are you that you can do the different tasks and activities needed to manage your health condition so as to reduce your need to see a doctor? Select Number: 10 Medication: How confident are you that you can do things other than just taking medication to reduce how much your illness affects your everyday life? Select Number: 10 Total Score:: 10 Nutrition Survey
[2021-01-30 06:16] VITALS: BP 100/60; BP 178/72; BMI 32.5
== END 2021-02-13 23:59 ==
LOC: CR 08:00
PROVIDERS: PCP Family Medicine; Referring Provider Internal Medicine Cardiovascular Disease; Visit Provider Internal Medicine Cardiovascular Disease
DX: I25.10 Atherosclerotic heart disease of native coronary artery without angina pectoris (principal); I45.10 Unspecified right bundle-branch block; E78.5 Hyperlipidemia, unspecified; Z95.5 Presence of coronary angioplasty implant and graft
CPT/HCPCS: 93798

== ENCOUNTER 2021-03-14 08:00 | Outpatient (RCR) | payer BC, SELFPAY ==
[2021-01-30 06:16] VITALS: BMI 32.5
[2021-02-14 00:40] VITALS: BP 100/60; BP 178/72; BMI 32.5
--- NOTE | 2021-02-28 06:33 | CR.ITP_ITS ---
Diagnosis Exercise - 60-day Assessment - Visit Date of Eval: 02/28/21 Session #:: 23 - Physician Prescribed Exercise Modalities: Treadmill, Rower, Airdyne Frequency: 3x/week for 12 weeks [36 sessions] Intensity: 60-80% of age predicted maximum heart rate reserve Current METSs:: 10.2 increase from 7.0 Target Heart Rate:: 138-162 Current RPE:: 14-15 Maximum Excercise HR:: 116 Maximum Exercise Blood Pressure: 152/70 EKG Type: NSR to sinus tach with rare PACs Current Physical Activity or Exercising minutes: 30-45 - Outcomes & Goals Goals:: Verbalizes understanding of THR, RPE & goal METS by session 6, Documents in home exercise log/reports 30 min aerobic 5 day/wk by DC, Demonstrates accurate pulse taking by DC - Intervention & Plan Exercise Program Goals: Instruct on personal THR & RPE, Instruct on MET level & personal MET goal, Show patient to take own pulse /validate performance until accurate, Instruct on home exercise - 30-day Reassessments 30 day Reassessments:: Met - Physical Activity Home Exercise Physical Activity - Home Exercise: Safe Exercise, Warm-up, Self-monitoring, Cool-Down, Home Exercise > 30 min Daily, Sitting Time <3 hours/daily - Outcomes & Goals Outcomes/Goals: Demonstrates correct Warm-up/exercise Cool-Down (S3) if = 2.5 METs, Verbalizes symptoms of exercise intolerance by Session 3 (S3), Demonstrate safe equipment use (S3) & follows exercise prescrition (6) - Intervention & Plan Plan/Intervention: Instruct warm-up & cool-down if exercising at > 2 METs, Instruct on symptoms of exercise intolerance & actions to take, Instruct & monitor on saf, Assess intial functional capacity & safety risk - 30-day Reassessments 30 day Reassessments:: Met Nutrition - Initial Assessment Nutrition - 30-Day Assessment Nutrition - 60-Day Assessment - Program Goals Nutrition Program Goals: LDL <100 optimal. 100 - 129 Near optimal. 130 - 159 Borderline High. 160 - 189 High. Total Cholesterol <200 desirable. 200 - 239 Borderline High. >/= 240 High. HDL < 40 Low >/=60 High. Triglycerides <150 desirable. <199 optimal. VlDL 5 - 40. HgbA1C <7%. BMI <25 Patient has diagnosis of Hyperlipidemia (ICD E78)?: Yes - Visit Date of Assessment:: 02/28/21 Session #:: 23 - Cholesterol/Lipids Determine presence & major risk factors that modify LDL goal: Hypertension or hypertensive medication, Family history of premature CHD in Male < 55 years: female <65 yearsFa, Age men > 45 years; women >/= 55 years Outcomes/Goals: Pt IDs own risk factors & lifestyle modifications by Session 10, Verbalizes symptoms of angina & response by session 3., Pt independently manages Intervention/Plan: Instruct on personal lipid levels & lipid goals/NCEP guidelines, Instruct on cholesterol 30-day Reassessments:: Progressing - Diabetes (Other Core Measures) Diabetes Type: Not Applicable - Weight Mgt (Other Care) Not Applicable: No Height: 6 ft 5 in Weight:: 272 lb - down from 275 BMI: 32.2 Diagnosis Overweight/Obesity BMI> 30% ICD-10 E66: Yes Diagnosis High BMI/Morbid Obesity BMI> 35% ICD-10 Z68: No Outcomes/Goals: Pt sets, maintains & shows weight loss goal & trend during rehab Intervention/Plan: Instruct on ideal BMI & set weight loss goal w/patient, Assist pt to ID & incorporate diet changes for weight loss by S9, Encourage goal of using 250-300dcal per session for weight loss 30 day Reassessments:: Progressing - Healthy Eating Habits Will attend diet classes:: Yes Outcomes/Goals:: Consume diet rich in vegs,fruits,whole grain/high fi mirtha,fish,lean meat, Limit sat/trans fats,cholesterol & added salts & sugars Intervention/Plan:: Assess current eating habits 30-day Reassessments:: Met - Education Gave educational materials for:: Healthy eating Nutrition - 90-Day Assessment Nutrition - Final Assessment Medical - Initial Assessment Medical- 30-Day Assessment Medical- 60-Day Assessment - Visit Date of Eval: 02/28/21 Session #:: 23 - Medication Compliance Preventative Medication(s):: Aspirin, Ticagrelor/P2Y12 inhibitor, Statin/lipid, Beta arlette H/O mental health issues: depression, anxiety, or addiction?: No Doesn?t believe in the benefits of treatment?: No Believes medications are unnecessary or harmful?: No Has a concern about medication side effects?: No Expresses concern over the cost of medications?: No Outcomes/Goals: Verbalizes medications,desired effect & common side effects @ DC, Pt self-reports following medication regimen, Keeps card in wallet w/medications listed by DC Interventions/plans: Instruct on medication effects & side effects, Review medication list w/patient every two weeks, Instruct importance of taking meds as ordered & assist problem solving 30-day Reassessments:: Met - Tobacco Use Tobacco Use: Non-smoker - Hypertension Hypertension Diagnosis:: Hypertension ICD-10 I10 Resting Blood Pressure:: 100/60 [place] [employer] Hypertension Guidelines: [place] [employer] Hypertension Guidelines. Normal BP Less than 120/80. Elevated BP 120/80. Hypertension Stage 1: BP 130-139/80-89. Hypertesnion Stage 2: BP 140 or highe r/90 or higher. Hypertension Crisis: BP higher than 180/120 Peak Exercise Blood Pressure:: 152/70 - on [place] bike Outcomes/Goals: Able to verbalize/achieve optimal blood pressure <130/80, Incorporates diet changes & exercise for blood pressure control by DC Interventions/plan: Instruct on optimal blood pressure, hypertension & medications, Instruct on effects of sodium, alcohol, stress, exercise &hypertension 30 day Reassessments:: Met - Tobacco Cessation Referral Smoking Cessation Referral:: No Individual Education/Counseling:: No Education Schedule Given:: Yes Medical- 90-Day Assessment Medical - Final Assessment Psychosocial - Initial Assess Psychosocial - 30-Day Assess Psychosocial - 60-Day Assess - VIsit Date of Eval: 02/28/21 Session #:: 23 Not Applicable: Yes History of previous Mental disease:: No - Psychosocial Test Tool Used:: PHQ-9 Questionnaire phq-9 Severity: Severity. 1-4 Minimal Depression. 5-9 Mild Depression. 10-14 Moderate Depression. 15-19 Moderately Sever Depression. 20-27 Severe Depression. Rule: - Referral to Behavioral Health PS - Interventions: Yes Attend Stress Management Classes, No Referral to Behavioral Health if PHQ-9 score >9:, No Referral to [facility], No Referral to Physician if PHQ-9 if score is 5-9: - Outcomes/Goals: See list Psychosocial Outcomes/Goals:: ID's personal stressors & 2 strategies to manage stress by discharge - Intervention/Plan: See List Interventions/Plan:: Assess stressors,coping strategies & signs of derpression on admission, Instruct/assist pt to develop coping & personal stress Mgt strategies, Instruct patient to recognize signs & symptoms of depression, Instruct patient to recog - 30-day Reassessments: 30 day Reassessments:: Met Psychosocial - 90-Day Assess Psychosocial - Final Assessmen Patient Health Questionnaire 60-Day Re-eval Assessment 1. Little interest or pleasure in doing things: Not at all 2. Feeling down, depressed, or hopeless: Not at all 3. Trouble falling or staying asleep, or sleeping too much: Not at all 4. Feeling tired or having little energy: Not at all 5. Poor appetite or overeating: Not at all 6. Feeling bad about yourself -- or that you are a failure or have let yourself or your family down: Not at all 7. Trouble concentrating on things, such as reading the newspaper or watching television: Not at all 8. Moving or speaking so slowly that other people could have noticed. Or the opposite - being so fidgety or restless that you have been moving around a lot more than usual: Not at all 9. Thoughts that you would be better off , or of hurting yourself in some way: Not at all Total Score: 0 Self-Efficacy 60-Day Re-eval Assessment We would like to know how confident you are in doing certain activities. Please select your confidence level for:: Select your confidence level for the following using the scale 1-10 where 1 is not at all confident and 10 is totally confident. Your score is the average of all 6 responses. Fatigue: How confident are you that you can keep the fatigue caused by your disease from interfering with the things you want to do? Select Number: 10 Physical Discomfort or Pain: How confident are you that you can keep the physical discomfort or pain of your disease from interfering with the things you want to do? Select Number: 10 Emotional Distress: How confident are you that you can keep the emotional distress caused by your disease from interfering with the things you want to do? Select Number: 10 Other Symptoms or Health Problems: How confident are you that you can keep other symptoms or health problems from interfering with the things you want to do? Select Number: 10 Different Tasks and Activities: How confident are you that you can do the different tasks and activities needed to manage your health condition so as to reduce your need to see a doctor? Select Number: 10 Medication: How confident are you that you can do things other than just taking medication to reduce how much your illness affects your everyday life? Select Number: 10 Total Score:: 10 Nutrition Survey
[2021-02-28 06:38] VITALS: BP 100/60; BP 152/70; BMI 32.2
== END 2021-03-15 23:59 ==
LOC: CR 08:00
PROVIDERS: PCP Family Medicine; Referring Provider Internal Medicine Cardiovascular Disease; Visit Provider Internal Medicine Cardiovascular Disease
DX: I25.10 Atherosclerotic heart disease of native coronary artery without angina pectoris (principal); I45.10 Unspecified right bundle-branch block; E78.5 Hyperlipidemia, unspecified; Z95.5 Presence of coronary angioplasty implant and graft
CPT/HCPCS: 93798

== ENCOUNTER → 2021-03-16 12:01 | Outpatient (CLI) | payer BC, SELFPAY ==
[2021-02-28 06:38] VITALS: BMI 32.2
== END ==
PROVIDERS: PCP Family Medicine; Visit Provider Family Medicine
DX: U07.1 COVID-19 (principal); Z03.818 Encounter for observation for suspected exposure to other biological agents ruled out
CPT/HCPCS: 87635; U0005; U0003

== ENCOUNTER 2021-03-19 15:50 | Outpatient (CLI) | payer BC, SELFPAY ==
[2021-02-28 06:38] VITALS: BMI 32.2
[2021-03-19] MEDS: 0.9% Saline Lock 10 ML Syringe IV (15:58)
[2021-03-19 15:59] VITALS: TEMP 36.7; BMI 31.6
[2021-03-19 16:47] VITALS: BP 119/70; PULSE 64; RESP 16; TEMP 36.7; O2SAT 97
[2021-03-19 17:51] VITALS: BP 126/78; PULSE 64; RESP 16; TEMP 36.7; O2SAT 100
== END 2021-03-19 18:04 | disposition home or self-care (01) ==
LOC: MS3OUT 15:50 → MS3 15:52
PROVIDERS: PCP Family Medicine; Referring Provider Nurse Practitioner Adult Health; Visit Provider Nurse Practitioner Adult Health
DX: Z23 Encounter for immunization (principal); U07.1 COVID-19
CPT/HCPCS: J7050; M0243; A4216; Q0244

== ENCOUNTER 2021-04-06 08:00 | Outpatient (RCR) | payer BC, SELFPAY ==
[2021-02-28 06:38] VITALS: BMI 32.2
[2021-03-16 00:31] VITALS: BP 100/60; BP 152/70; BMI 32.5
--- NOTE | 2021-03-28 08:59 | PCM.CR.ITP ---
Diagnosis Exercise - 90-day Assessment - Visit Date of Eval: 03/28/21 Session #:: 30 Comments:: 03/16/2021 patient notified CR that he had tested positive for COVID-19. He will be out for 14 days. - Physician Prescribed Exercise Modalities: Treadmill, Rower, Airdyne Frequency: 3x/week for 12 weeks [36 sessions] Intensity: 60-80% of age predicted maximum heart rate reserve Current METSs:: 10.7 from his initial start of 4.0 METs Target Heart Rate:: 138-162 Current RPE:: 13-14 Maximum Excercise HR:: 123 Resting Blood Pressure: 108/70 Maximum Exercise Blood Pressure: 170/78 - Outcomes & Goals Goals:: Verbalizes understanding of THR, RPE & goal METS by session 6, Documents in home exercise log/reports 30 min aerobic 5 day/wk by DC, Demonstrates accurate pulse taking by DC - Intervention & Plan Exercise Program Goals: Instruct on personal THR & RPE, Instruct on MET level & personal MET goal, Show patient to take own pulse /validate performance until accurate, Instruct on home exercise - 30-day Reassessments 30 day Reassessments:: Met - Physical Activity Home Exercise Physical Activity - Home Exercise: Safe Exercise, Warm-up, Self-monitoring, Cool-Down, Home Exercise > 30 min Daily, Sitting Time <3 hours/daily - Outcomes & Goals Outcomes/Goals: Demonstrates correct Warm-up/exercise Cool-Down (S3) if = 2.5 METs, Verbalizes symptoms of exercise intolerance by Session 3 (S3), Demonstrate safe equipment use (S3) & follows exercise prescrition (6) - Intervention & Plan Plan/Intervention: Instruct warm-up & cool-down if exercising at > 2 METs, Instruct on symptoms of exercise intolerance & actions to take, Instruct & monitor on saf, Assess intial functional capacity & safety risk - 30-day Reassessments 30 day Reassessments:: Met Nutrition - Initial Assessment Nutrition - 30-Day Assessment Nutrition - 60-Day Assessment Nutrition - 90-Day Assessment - Program Goals Nutrition Program Goals: LDL <100 optimal. 100 - 129 Near optimal. 130 - 159 Borderline High. 160 - 189 High. Total Cholesterol <200 desirable. 200 - 239 Borderline High. >/= 240 High. HDL < 40 Low >/=60 High. Triglycerides <150 desirable. <199 optimal. VlDL 5 - 40. HgbA1C <7%. BMI <25 Patient has diagnosis of Hyperlipidemia (ICD E78)?: Yes - Visit Date of Assessment:: 03/28/21 Session #:: 30 - Cholesterol/Lipids Triglycerides (mg/dL): 396 Total Cholesterol (mg/dL): 209 LDL Cholesterol (mg/dL): 102 HDL Cholesterol (mg/dL): 28 Determine presence & major risk factors that modify LDL goal: Hypertension or hypertensive medication, Low HDL cholesterol <40 mg/dL*, Family history of premature CHD in Male < 55 years: female <65 yearsFa, Age men > 45 years; women >/= 55 years Outcomes/Goals: Pt IDs own risk factors & lifestyle modifications by Session 10, Verbalizes symptoms of angina & response by session 3., Pt independently manages Intervention/Plan: Instruct on personal lipid levels & lipid goals/NCEP guidelines, Instruct on cholesterol Referral to dietitian:: Yes - Diabetes (Other Core Measures) Diabetes Type: Not Applicable Outcomes/Goals:: Other additional Intervention/Plan:: Other - Weight Mgt (Other Care) Not Applicable: Yes Height: 6 ft 5 in Weight:: 275 lb BMI: 32.5 Diagnosis Overweight/Obesity BMI> 30% ICD-10 E66: Yes Diagnosis High BMI/Morbid Obesity BMI> 35% ICD-10 Z68: Yes Outcomes/Goals: Pt sets, maintains & shows weight loss goal & trend during rehab Intervention/Plan: Instruct on ideal BMI & set weight loss goal w/patient, Assist pt to ID & incorporate diet changes for weight loss by S9, Encourage goal of using 250-300dcal per session for weight loss 30 day Reassessments:: Met - Healthy Eating Habits Will attend diet classes:: Yes Outcomes/Goals:: Consume diet rich in vegs,fruits,whole grain/high fiber,fish,lean meat, Limit sat/trans fats,cholesterol & added salts & sugars Intervention/Plan:: Assess current eating habits 30-day Reassessments:: Met - Education Gave educational materials for:: Healthy eating Nutrition - Final Assessment Medical - Initial Assessment Medical- 30-Day Assessment Medical- 60-Day Assessment Medical- 90-Day Assessment - Visit Date of Eval: 03/28/21 Session #:: 30 - Medication Compliance Preventative Medication(s):: Aspirin, Statin/lipid, Beta arlette Outcomes/Goals: Verbalizes medications,desired effect & common side effects @ DC, Pt self-reports following medication regimen, Keeps card in wallet w/medications listed by DC Interventions/plans: Instruct on medication effects & side effects, Review medication list w/patient every two weeks, Instruct importance of taking meds as ordered & assist problem solving - Tobacco Use Outcomes/Goals: Identify aids/strategies for achieving smoking cessation by session 6 30-day Reassessments:: Progressing - Hypertension Hypertension Diagnosis:: Hypertension ICD-10 I10 [place] [employer] Hypertension Guidelines: [place] [employer] Hypertension Guidelines. Normal BP Less than 120/80. Elevated BP 120/80. Hypertension Stage 1: BP 130-139/80-89. Hypertesnion Stage 2: BP 140 or higher/90 or higher. Hypertension Crisis: BP higher than 180/120 Outcomes/Goals: Able to verbalize/achieve optimal blood pressure <130/80, Incorporates diet changes & exercise for blood pressure control by DC Interventions/plan: Instruct on optimal blood pressure, hypertension & medications, Instruct on effects of sodium, alcohol, stress, exercise &hypertension 30 day Reassessments:: Progressing - Tobacco Cessation Referral Smoking Cessation Referral:: No Individual Education/Counseling:: No Education Schedule Given:: Yes Medical - Final Assessment Psychosocial - Initial Assess Psychosocial - 30-Day Assess Psychosocial - 60-Day Assess Psychosocial - 90-Day Assess - VIsit Date of Eval: 03/28/21 Session #:: 30 Not Applicable: Yes History of previous Mental disease:: No - Psychosocial Test Tool Used:: PHQ-9 Questionnaire phq-9 Severity: Severity. 1-4 Minimal Depression. 5-9 Mild Depression. 10-14 Moderate Depression. 15-19 Moderately Sever Depression. 20-27 Severe Depression. Rule: - Referral to Behavioral Health PS - Interventions: Yes Attend Stress Management Classes, No Referral to Behavioral Health if PHQ-9 score >9:, No Referral to [facility], No Referral to Physician if PHQ-9 if score is 5-9: - Outcomes/Goals: See list Psychosocial Outcomes/Goals:: ID's personal stressors & 2 strategies to manage stress by discharge - Intervention/Plan: See List Interventions/Plan:: Assess stressors,coping strategies & signs of derpression on admission, Instruct/assist pt to develop coping & personal stress Mgt strategies, Instruct patient to recognize signs & symptoms of depression, Instruct patient to recog - 30-day Reassessments: 30 day Reassessments:: Progressing Psychosocial - Final Assessmen Patient Health Questionnaire 90-Day Re-eval Assessment 1. Little interest or pleasure in doing things: Not at all 2. Feeling down, depressed, or hopeless: Not at all 3. Trouble falling or staying asleep, or sleeping too much: Not at all 4. Feeling tired or having little energy: Not at all 5. Poor appetite or overeating: Not at all 6. Feeling bad about yourself -- or that you are a failure or have let yourself or your family down: Not at all 7. Trouble concentrating on things, such as reading the newspaper or watching television: Not at all 8. Moving or speaking so slowly that other people could have noticed. Or the opposite - being so fidgety or restless that you have been moving around a lot more than usual: Not at all 9. Thoughts that you would be better off , or of hurting yourself in some way: Not at all How difficult have these problems made it for you to do your work, take care of things at home, or get along with other people?: Not difficult at all Total Score: 0 Self-Efficacy 90-Day Re-eval Assessment We would like to know how confident you are in doing certain activities. Please select your confidence level for:: Select your confidence level for the following using the scale 1-10 where 1 is not at all confident and 10 is totally confident. Your score is the average of all 6 responses. Fatigue: How confident are you that you can keep the fatigue caused by your disease from interfering with the things you want to do? Select Number: 10 Physical Discomfort or Pain: How confident are you that you can keep the physical discomfort or pain of your disease from interfering with the things you want to do? Select Number: 10 Emotional Distress: How confident are you that you can keep the emotional distress caused by your disease from interfering with the things you want to do? Select Number: 10 Other Symptoms or Health Problems: How confident are you that you can keep other symptoms or health problems from interfering with the things you want to do? Select Number: 10 Different Tasks and Activities: How confident are you that you can do the different tasks and activities needed to manage your health condition so as to reduce your need to see a doctor? Select Number: 10 Medication: How confident are you that you can do things other than just taking medication to reduce how much your illness affects your everyday life? Select Number: 10 Total Score:: 10 Nutrition Survey - Nutrition Survey Discharge Have you lost >10 lbs over the past 2 months without trying?: No Are you following a special diet at home for diabetes, low fat, or low salt?: No Are you interested in meeting with a dietitian for help understanding your diet?: No Do you eat less than 3 meals a day?: No Do you eat fatty meats (harden, sausage, ribs, etc), fried foods, desserts, large amounts of salad dressings, margarine, butter, or cheese most days?: No Do you have food allergies? [Enter types in comment field]: No Do you eat in restaurants more than 3 times a week?: No Do you season food with salt, seasoning salt, or garlic salt?: No Do you used canned, boxed, frozen meals, or soups, seasoning packets?: No Total Score:: 0
[2021-03-28 09:10] VITALS: BP 108/70; BMI 32.5
== END 2021-04-15 23:59 ==
LOC: CR 08:00
PROVIDERS: PCP Family Medicine; Referring Provider Internal Medicine Cardiovascular Disease; Visit Provider Internal Medicine Cardiovascular Disease
DX: I25.10 Atherosclerotic heart disease of native coronary artery without angina pectoris (principal); I45.10 Unspecified right bundle-branch block; E78.5 Hyperlipidemia, unspecified; Z95.5 Presence of coronary angioplasty implant and graft
CPT/HCPCS: 93798

== ENCOUNTER → 2022-03-01 | Outpatient (CLI) | payer BC, SELFPAY ==
[2021-03-28 09:10] VITALS: BMI 32.5
--- NOTE | 2022-03-01 16:17 | STRESSREP_ITS ---
Stress Test Report Exercise myocardial perfusion stress test. 61-year-old with a history of coronary artery disease. Resting EKG demonstrates normal sinus rhythm with a rate of 67 bpm resting blood pressure is 132/80 mmHg. The patient exercised according to the regular Quang protocol for total duration of 10 minutes completing 1 minute into stage IV of the Quang protocol. The maximum heart rate attained was 148 bpm which was 91% of max impacted heart rate the maximum workload was 13.4 metabolic equivalents. At rest there were no ST or T wave changes noted suggest ischemia and at peak exercise upsloping ST changes were noted with did not meet the criteria for ischemia. No clinical angina was noted the test was terminated due to dyspnea. No chest pain was present. The peak blood pressure was 202/78 mmHg rate-pressure product was 21,440. Myocardial perfusion protocol. 14.9 mCi of technetium 99m sestamibi was injected at rest. The patient exer cised according to regular Quang protocol for total duration of 10 minutes. At peak exercise 44.8 mCi of technetium 99m sestamibi was injected stress images were obtained stress and rest images were reconstructed in comparing the short axis vertical long and horizontal long axis. Gated images were also obtained to Perfusion SPECT analysis: Review of the stress images demonstrate normal uptake of tracer noted in all areas of the myocardium. The resting images similarly demonstrate normal uptake of tracer noted in all areas of the myocardium. No evidence of reversibility is noted suggest ischemia no previous infarct is noted. Gated SPECT analysis: The gated ejection fraction is noted to be 67%. Conclusion: Normal exercise myocardial perfusion stress test at a high workload. Preserved ejection fraction.
== END | disposition home or self-care (01) ==
PROVIDERS: PCP Family Medicine; Referring Provider Internal Medicine Cardiovascular Disease; Visit Provider Internal Medicine Cardiovascular Disease
DX: I25.10 Atherosclerotic heart disease of native coronary artery without angina pectoris (principal); E78.5 Hyperlipidemia, unspecified; Z95.5 Presence of coronary angioplasty implant and graft
CPT/HCPCS: 78452; 93017; A9500

== ENCOUNTER → 2022-03-21 | Outpatient (CLI) | payer BC, SELFPAY ==
[2021-03-28 09:10] VITALS: BMI 32.5
[2022-03-21 16:11] LABS: AST(SGOT) 20 U/L (15-37); Alanine Aminotransfer ALT/SGPT 35 U/L (16-61); Albumin, Serum 3.8 g/dL (3.2-5.0); Alkaline Phosphatase 40 U/L (45-117); Cholesterol 112 mg/dL (200); Globulin 3.1 g/dL (2.2-4.2); High Density Lipoprotein 30 mg/dL; Protein, Total 6.9 g/dL (6.4-8.2); Triglycerides 226 mg/dL; Very Low Density Lipoprotein 45 mg/dL (5-40)
== END | disposition home or self-care (01) ==
LOC: LAB 14:32
PROVIDERS: PCP Family Medicine; Referring Provider Internal Medicine Cardiovascular Disease; Visit Provider Internal Medicine Cardiovascular Disease
DX: E78.00 Pure hypercholesterolemia, unspecified (principal)
CPT/HCPCS: 36415; 80061; 80076

== ENCOUNTER → 2022-05-03 | Outpatient (CLI) | payer BC, SELFPAY ==
[2021-03-28 09:10] VITALS: BMI 32.5
[2022-05-03 18:17] LABS: Uric Acid 3.3 mg/dL (3.5-7.2)
== END | disposition home or self-care (01) ==
LOC: MFPLAB 14:43
PROVIDERS: PCP Family Medicine; Visit Provider Family Medicine
DX: M25.579 Pain in unspecified ankle and joints of unspecified foot (principal)
CPT/HCPCS: 36415; 84550

== ENCOUNTER → 2022-07-16 | Outpatient (CLI) | payer BC, SELFPAY ==
[2021-03-28 09:10] VITALS: BMI 32.5
--- NOTE | 2022-07-16 09:02 | RAD_ITS ---
EXAM: XR LEFT ANKLE COMPLETE, 3 OR MORE VIEWS CLINICAL INDICATION: ankle pain left ankle swelling off and on for several months now, no injury TECHNIQUE: Frontal, lateral and oblique views of the left ankle. This report was created using [employer] report eSnips technology. COMPARISON: None. FINDINGS: BONES/JOINTS: Abnormal angulation of the ankle mortise may suggest ligamentous injury. Degenerative findings of the ankle mortise. No acute fracture. No subluxation. Normal alignment. No sclerotic or destructive changes observed. SOFT TISSUES: Unremarkable. No soft tissue swelling or gas. No radiopaque foreign body. RAD/Ankle min 3 Views IMPRESSION: Abnormal angulation of the ankle mortise may suggest ligamentous injury. Electronically Signed: Erasto Natarajan MD at 19:46 EST Reading Location ID and State: [facility] / [place] , Service support ,
[2022-07-16 10:56] LABS: ALB/GLOB Ratio 1.2 RATIO (0.9-2.4); AST(SGOT) 22 U/L (15-37); Alanine Aminotransfer ALT/SGPT 41 U/L (16-61); Albumin, Serum 3.9 g/dL (3.2-5.0); Alkaline Phosphatase 45 U/L (45-117); Anion Gap 8 (5-15); BUN 18 mg/dL (7-18); BUN/Creat Ratio 17.5 RATIO (10-20); Calcium,Total 8.8 mg/dL (8.5-10.1); Chloride 105 mmol/L (98-107); Creatinine, Serum 1.03 mg/dL (0.70-1.30); EST Glomerular Filtration Rate 78 mL/min (>60); Est Glom Filt Rate - Afr Amer 95 mL/min (>60); Globulin 3.2 g/dL (2.2-4.2); Glucose 272 mg/dL (74-106); PSA,Total - Annual Screen 1.05 ng/mL (0.00-4.00); Potassium 4.6 mmol/L (3.5-5.1); Protein, Total 7.1 g/dL (6.4-8.2); Sodium Level 140 mmol/L (136-145); Thyroid Stim Hormone (TSH) 1.51 uIU/mL (0.358-3.74)
== END | disposition home or self-care (01) ==
LOC: MTLAB 08:58
PROVIDERS: PCP Family Medicine; Referring Provider Family Medicine; Visit Provider Family Medicine
DX: Z00.00 Encounter for general adult medical examination without abnormal findings (principal); E11.9 Type 2 diabetes mellitus without complications; M25.572 Pain in left ankle and joints of left foot; Z12.5 Encounter for screening for malignant neoplasm of prostate
CPT/HCPCS: 36415; 73610; 80053; 84153; 84443; G0103

== ENCOUNTER → 2023-07-17 | Outpatient (CLI) | payer MEDICARE, SELFPAY ==
[2021-03-28 09:10] VITALS: BMI 32.5
[2023-07-17 18:21] LABS: ALB/GLOB Ratio 1.3 RATIO (0.9-2.4); AST(SGOT) 24 U/L (15-37); Alanine Aminotransfer ALT/SGPT 35 U/L (16-61); Albumin, Serum 4.2 g/dL (3.2-5.0); Alkaline Phosphatase 35 U/L (45-117); Anion Gap 1 (5-15); BUN 14 mg/dL (7-18); BUN/Creat Ratio 13.9 RATIO (10-20); Calcium,Total 9.1 mg/dL (8.5-10.1); Chloride 105 mmol/L (98-107); Cholesterol 103 mg/dL (200); Creatinine, Serum 1.01 mg/dL (0.70-1.30); EST Glomerular Filtration Rate 80 mL/min (>60); Est Glom Filt Rate - Afr Amer 97 mL/min (>60); Globulin 3.2 g/dL (2.2-4.2); Glucose 102 mg/dL (74-106); High Density Lipoprotein 40 mg/dL; PSA,Total - Annual Screen 0.93 ng/mL (0.00-4.00); Protein, Total 7.4 g/dL (6.4-8.2); Sodium Level 136 mmol/L (136-145); Thyroid Stim Hormone (TSH) 1.68 uIU/mL (0.358-3.74); Triglycerides 87 mg/dL; Very Low Density Lipoprotein 17 mg/dL (5-40)
== END | disposition home or self-care (01) ==
PROVIDERS: PCP Family Medicine; Visit Provider Family Medicine
DX: N50.89 Other specified disorders of the male genital organs (principal)
CPT/HCPCS: 36415; 80053; 80061; 84153; 84443; 87086; G0103

== ENCOUNTER → 2023-07-17 | Outpatient (CLI) | payer MEDICARE, SELFPAY ==
[2021-03-28 09:10] VITALS: BMI 32.5
== END | disposition home or self-care (01) ==
LOC: MFPLAB 16:17
PROVIDERS: PCP Family Medicine; Visit Provider Family Medicine
DX: Z12.5 Encounter for screening for malignant neoplasm of prostate (principal); E11.9 Type 2 diabetes mellitus without complications; N50.89 Other specified disorders of the male genital organs
CPT/HCPCS: 36415; 80053; 80061; 84153; 84443; 87086; G0103

== ENCOUNTER 2023-09-19 06:55 | Day surgery (SDC) | payer OTHER, SELFPAY ==
[2021-03-28 09:10] VITALS: BMI 32.5
[2023-09-19] MEDS: Lactated Ringers 1,000 ML 15 ML IV (07:27)
[2023-09-19 07:31] VITALS: BP 147/87; PULSE 76; RESP 18; TEMP 36.3; O2SAT 99; BMI 27.8
[2023-09-19 07:51] LABS: Bedside Glucose 126 mg/dL (74-106)
--- NOTE | 2023-09-19 08:36 | HP.PCM_ITS ---
HPI - General General Date of Admission: 02/29/20 Date of Service: 09/19/23 Chief Complaint: Personal history of colon polyps HPI Narrative NIKKI DONALD, is a 62 M who presents for a surveillance colonoscopy today. He has a personal history of colon polyps with one resected May 2018. Family history of mother had colon cancer. He presents via open access today. [facility] Medical History (Updated 09/19/23 @ 08:[address] Lazaro Arshad MD) Anxiety Atherosclerotic heart disease of [place] coronary artery without angina pectoris Cardiology follow-up encounter COVID-19 virus detected (03/16/21) Diabetes mellitus type 2, noninsulin dependent Essential hypertension Family history of colon cancer in mother Former smoker Hemorrhoids High cholesterol History of edema History of stress test History of ulceration Hx of colonic polyp Hyperlipidemia Incomplete right bundle branch block Obesity Screening for intestinal cancer Stomach ulcer Umbilical hernia without obstruction or gangrene Home Medications aspirin 81 mg tablet,delayed release 81 mg PO DAILY@0800 #30 tabs 12/08/20 [Rx Last Taken 09/15/23] sildenafil (pulm.hypertension) 20 mg tablet 20 mg PO ONCE PRN sexual activity 03/21/22 [History Last Taken Unknown] losartan 25 mg tablet 25 mg PO DAILY #90 tabs 06/02/23 [Rx Last Taken 09/18/23] atorvastatin 80 mg tablet 40 mg PO QHS 09/17/23 [History Last Taken 09/18/23] magnesium 200 mg tablet 400 mg PO QHS 09/17/23 [History Last Taken 09/18/23] Allergy/AdvReac Type Severity Reaction Status Date / Time lisinopril AdvReac Intermediate Dry Verified 09/17/23 14:59 nagging cough Family History (Updated 08/19/23 @ 10:37 by Pamella Allison) Mother Breast cancer Colon cancer, Onset Age: 58 Brother Heart disease Surgical History (Updated 09/17/23 @ 15:14 by Estelita Wiseman) History of cardiac catheterization History of coronary artery stent placement (12/07/20) History of lithotripsy History of umbilical hernia repair (08/2020) Hx of colonoscopy Social History (Updated 08/19/23 @ 10:38 by Pamella Allison) household members: spouse current occupational status: employed current occupation: [employer] Smoking Status: Former smoker alcohol intake: current alcohol intake frequency: a few times a month substance use type: does not use ROS Constitutional Constitutional: Reports systems reviewed and no addt'l complaints, except as documented Cardiovascular Cardiovascular: Denies chest pain Respiratory/Chest Respiratory/Chest: Denies shortness of breath at rest Gastrointestinal Gastrointestinal: Denies abdominal pain, change in bowel habits, hematochezia or melena Vital Signs Vital Signs Vital Signs: 09/19/23 07:29 09/19/23 07:31 Temperature 97.4 F L Temperature Source Temporal Pulse Rate 76 Respiratory Rate 18 Respiratory Pattern Normal Blood Pressure 147/87 H Blood Pressure Mean 107 Blood Pressure Source Monitor Blood Pressure Position Semi-Fowlers Blood Pressure Location Right Arm Pulse Ox 99 Oxygen Delivery Method Room Air Weight Weight: 235 lb Body Mass Index (BMI) 27.8 Physical Exam Const alert, oriented x3 and no apparent distress General Appearance: cooperative and comfortable Eyes General Eye: normal appearance of both eyes Neck General: normal visual inspection Chest inspection of chest normal Resp Effort and Inspection: able to speak in complete sentences and symmetric chest movement Auscultation: clear to auscultation bilaterally Cardio regular rate and regular rhythm GI soft to palpation, non-tender and non-distended Extremity no calf tenderness Neuro oriented x3 Psych thought process normal Results Lab / Micro Data Labs: Laboratory Results - last 24 hr 09/19/23 07:17: POC Glucose 126 H Assessment & Plan Assessment/Plan (1) Hx of colonic polyp: PLAN: The patient presents via open access today for planned surveillance colonoscopy with possible biopsy or polypectomy as indicated. He is aware of the technique, benefit, risk, alternatives. He has had an opportunity to ask and have questions answered. We will proceed as noted. Lazaro Arshad M.D., F.A.C.S.
--- NOTE | 2023-09-19 09:12 | OP.COLON_ITS ---
Patient Name: Heriberto Enciso Procedure Date: 09/19/2023 8:33 AM Date of : 1960 Age: 62 Procedure: Colonoscopy Indications: High risk colon cancer surveillance: Personal history of colonic polyps Providers: Lazaro Arshad MD Medicines: See the Anesthesia note for documentation of the administered medications Patient Profile: Last Colonoscopy: May 2018. Complications: No immediate complications. Procedure: Pre-Anesthesia Assessment: - Prior to the procedure, a History and Physical was performed, and patient medications and allergies were reviewed. The patient's tolerance of previous anesthesia was also reviewed. The risks and benefits of the procedure and the sedation options and risks were discussed with the patient. All questions were answered, and informed consent was obtained. Prior Anticoagulants: The patient has taken no anticoagulant or antiplatelet agents. ASA Grade Assessment: II - A patient with mild systemic disease. After reviewing the risks and benefits, the patient was deemed in satisfactory condition to undergo the procedure. After I obtained informed consent, the scope was passed under direct vision. Throughout the procedure, the patient's blood pressure, pulse, and oxygen saturations were monitored continuously. The Colonoscope was introduced through the anus and advanced to the cecum, identified by appendiceal orifice and ileocecal valve. The colonoscopy was performed without difficulty. The patient tolerated the procedure well. The quality of the bowel preparation was adequate to identify polyps greater than 5 mm in size. The ileocecal valve and the appendiceal orifice were photographed. Scope In: 8:48:14 AM Scope Withdrawal Time 0 hours 10 minutes 49 seconds Scope Out: 9:06:43 AM Total Procedure Duration Time 0 hours 18 minutes 29 seconds Findings: The digital rectal exam findings include non-thrombosed external hemorrhoids, non-thrombosed internal hemorrhoids and internal hemorrhoids that prolapse with straining, but spontaneously regress to the resting position (Grade II). Pertinent negatives include normal prostate (size, shape, and consistency). The colon (entire examined portion) was mildly tortuous. The exam was otherwise without abnormality. Impression: - Non-thrombosed external hemorrhoids, non-thrombosed internal hemorrhoids and internal hemorrhoids that prolapse with straining, but spontaneously regress to the resting position (Grade II) found on digital rectal exam. - Tortuous colon. - The examination was otherwise normal. - No specimens collected. Recommendation: - Discharge patient to home. - Resume previous diet. - Continue present medications. - Repeat colonoscopy in 5 years for surveillance. Procedure Code(s): --- Professional --- 23196, Colonoscopy, flexible; diagnostic, including collection of specimen(s) by brushing or washing, when performed (separate procedure) Diagnosis Code(s): --- Professional --- Z86.010, Personal history of colonic polyps K64.1, Second degree hemorrhoids K64.4, Residual hemorrhoidal skin tags Q43.8, Other specified congenital malformations of intestine CPT copyright 2021 [employer]. All rights reserved. The codes documented in this report are preliminary and upon medical coder review may be revised to meet current compliance requirements. Lazaro Arshad MD 09/19/2023 9:11:42 AM This report has been signed electronically. Number of Addenda: 0 Note Initiated On: 09/19/2023 8:33 AM
--- NOTE | 2023-09-19 09:12 | OP.CCLET_ITS ---
09/19/2023 Arnie Willis [address] [place] [address] Re : Colonoscopy procedure for Heriberto Enciso Dear Dr. Willis This procedure was performed on Tuesday, September 19, 2023. My impressions and recommendations are as follows: Impressions : - Non-thrombosed external hemorrhoids, non-thrombosed internal hemorrhoids and internal hemorrhoids that prolapse with straining, but spontaneously regress to the resting position (Grade II) found on digital rectal exam. - Tortuous colon. - The examination was otherwise normal. - No specimens collected. Recommendations : - Discharge patient to home. - Resume previous diet. - Continue present medications. - Repeat colonoscopy in 5 years for surveillance. My findings are described in the full procedure note, which is enclosed. If I can be of further assistance, please feel free to contact me at Doctor phone number(s): Work: . Sincerely, Lazaro Arshad MD 09/19/2023 9:11:42 AM This report has been signed electronically.
[2023-09-19 09:15] VITALS: BP 110/86; BP 147/74; PULSE 63; RESP 16; TEMP 36.1; O2SAT 98
[2023-09-19 09:20] VITALS: BP 119/84; BP 147/74; PULSE 63; RESP 16; O2SAT 98
[2023-09-19 09:25] VITALS: BP 133/86; BP 147/74; PULSE 60; RESP 16; O2SAT 100
[2023-09-19 09:30] VITALS: BP 129/86; BP 147/74; PULSE 62; RESP 16; TEMP 36.2; O2SAT 100
[2023-09-19 09:53] VITALS: BP 147/74
== END 2023-09-19 10:00 | disposition home or self-care (01) ==
LOC: EN 06:57 → AC 06:58
PROVIDERS: PCP Family Medicine; Referring Provider Family Medicine; Visit Provider Surgery
PROC: 0DJD8ZZ Inspection of Lower Intestinal Tract, Via Natural or Artificial Opening Endoscopic (ICD-10-PCS; CPT 45378; principal; 2023-09-19 07:55)
DX: Z12.11 Encounter for screening for malignant neoplasm of colon (principal); E11.9 Type 2 diabetes mellitus without complications; K64.4 Residual hemorrhoidal skin tags; I25.10 Atherosclerotic heart disease of native coronary artery without angina pectoris; E78.00 Pure hypercholesterolemia, unspecified; I10 Essential (primary) hypertension; Z87.891 Personal history of nicotine dependence; Z79.82 Long term (current) use of aspirin; Z86.010 Personal history of colon polyps; Z80.0 Family history of malignant neoplasm of digestive organs; Z79.899 Other long term (current) drug therapy; K64.1 Second degree hemorrhoids; Q43.8 Other specified congenital malformations of intestine; Z95.5 Presence of coronary angioplasty implant and graft
CPT/HCPCS: 45378; 82962; J7120; J2405

== ENCOUNTER → 2024-08-09 | Outpatient (CLI) | payer BC, SELFPAY ==
[2021-03-28 09:10] VITALS: BMI 32.5
[2024-08-09 19:29] LABS: ALB/GLOB Ratio 1.1 RATIO (0.9-2.4); AST(SGOT) 21 U/L (15-37); Alanine Aminotransfer ALT/SGPT 37 U/L (16-61); Albumin, Serum 3.7 g/dL (3.2-5.0); Alkaline Phosphatase 40 U/L (45-117); Anion Gap 7 (5-15); BUN 18 mg/dL (7-18); BUN/Creat Ratio 19.8 RATIO (10-20); Calcium,Total 8.7 mg/dL (8.5-10.1); Chloride 104 mmol/L (98-107); Cholesterol 104 mg/dL (200); Creatinine, Serum 0.91 mg/dL (0.70-1.30); EST Glomerular Filtration Rate 90 mL/min (>60); Est Glom Filt Rate - Afr Amer 109 mL/min (>60); Globulin 3.5 g/dL (2.2-4.2); Glucose 121 mg/dL (74-106); High Density Lipoprotein 39 mg/dL; PSA,Total - Annual Screen 0.73 ng/mL (0.00-4.00); Potassium 3.8 mmol/L (3.5-5.1); Protein, Total 7.2 g/dL (6.4-8.2); Sodium Level 138 mmol/L (136-145); Triglycerides 98 mg/dL; Very Low Density Lipoprotein 20 mg/dL (5-40)
== END | disposition home or self-care (01) ==
LOC: MFPLAB 11:59
PROVIDERS: PCP Family Medicine; Referring Provider Family Medicine; Visit Provider Family Medicine
DX: Z12.5 Encounter for screening for malignant neoplasm of prostate (principal); E11.9 Type 2 diabetes mellitus without complications; E78.5 Hyperlipidemia, unspecified
CPT/HCPCS: 36415; 80053; 80061; 84153; 84443; G0103

== ENCOUNTER → 2024-12-15 | Outpatient (CLI) | payer BC, SELFPAY ==
[2021-03-28 09:10] VITALS: BMI 32.5
== END | disposition home or self-care (01) ==
LOC: LABSPEC 15:19
PROVIDERS: PCP Family Medicine; Visit Provider Family Medicine
DX: N41.0 Acute prostatitis (principal)
CPT/HCPCS: 87086

== ENCOUNTER → 2025-03-22 | Outpatient (CLI) | payer BC, SELFPAY ==
[2021-03-28 09:10] VITALS: BMI 32.5
--- NOTE | 2025-03-22 18:27 | STRESSREP ---
Stress Test Report Pharmacologic myocardial perfusion stress test. 64-year-old man with a history of [cad ]. Resting EKG demonstrates sinus bradycardia with a rate of 59 bpm. Resting blood pressure is 152/88 mmHg. 0.4 mg of regadenoson was infused per usual protocol followed by rapid intravenous saline flush injection. Continuous EKG monitoring was performed. The maximum heart rate was 82 bpm which was 51% of max impacted heart rate the maximum workload was 1 metabolic equivalent. At rest there were no ST or T wave changes noted to suggest ischemia and at peak infusion nonspecific ST changes were noted which did not meet the criteria for ischemia. No clinical angina is noted. The final blood pressure was 152/88 mmHg. Myocardial perfusion protocol. 14.6 mCi of technetium 99m sestamibi was injected at rest. 0.4 mg of regadenoson was infused per usual protocol. At peak infusion 44 point mCi of technetium 99m sestamibi was injected stress images were obtained stress and rest images were reconstructed and compared in the short axis vertical long and horizontal long axis. Gated images were also obtained. Perfusion SPECT analysis: Review of the stress images demonstrate normal uptake of tracer noted in all areas of the myocardium. The resting images similar demonstrated normal uptake of tracer noted in all areas of the myocardium. No areas of reversibility are noted to suggest ischemia and no previous infarct is noted. Gated SPECT analysis: The gated ejection fraction is 71%. Conclusion: Normal pharmacologic myocardial perfusion stress test. Preserved ejection fraction.
== END | disposition home or self-care (01) ==
LOC: CVS 06:17
PROVIDERS: PCP Family Medicine; Referring Provider Family Medicine; Visit Provider Family Medicine
DX: I25.10 Atherosclerotic heart disease of native coronary artery without angina pectoris (principal)
CPT/HCPCS: 78452; 93017; A9500; A4216; J2785